=== PATIENT | male | born 1945 | race Caucasian/White ===

== ENCOUNTER 2018-05-26 11:25 | Emergency (ER) | payer MEDICARE, BC ==
[2018-05-26] MEDS ORDERED: HYDROCODONE/ACETAMINOPHEN 5-325 MG TABLET PO ONE (11:59)
[2018-05-26] MEDS ORDERED: KETOROLAC TROMETHAMINE 60 MG/2 ML SDV IM ONE (11:59)
[2018-05-26] MEDS ORDERED: COLCHICINE 0.6 MG TABLET PO ONE (11:59)
--- NOTE | 2018-05-26 12:06 | ER Document Report ---
ED Hand/Wrist Injury - General Chief Complaint: Hand Swelling Stated Complaint: RIGHT ARM SWELLING/PAIN Time Seen by Provider: 05/26/18 11:50 Notes: Chief complaint: Right wrist pain History of complain:( obtained from----patient) 73 years old male with a history of gout but not taking any medications, also has history of diabetes and high blood pressure presents today with sudden onset of swelling pain over the right wrist since yesterday. Progressively getting worse to the point that he was unable to flex and extend the wrist. The pain radiated up the arm. And to the hand. No injuries. Denies any fever chills or other constitutional symptoms. Onset: As above Duration: 2 days Severity: Moderate to severe Quality: Sharp Context: Gout Exacerbating factor and relieving factors: Any movements REVIEW OF SYSTEMS: CONSTITUTIONAL : Denies fever, chills, or sweats. Denies recent illness. EENT: Denies eye, ear, throat, or mouth pain or symptoms. Denies nasal or sinus congestion or discharge. Denies throat, tongue, or mouth swelling or difficulty swallowing. CARDIOVASCULAR: Denies chest pain. Denies palpitations or racing or irregular heart beat. Denies ankle edema. RESPIRATORY: Denies cough, cold, or chest congestion. Denies shortness of breath, difficulty breathing, or wheezing. GASTROINTESTINAL: Denies distention. Denies nausea, vomiting, or diarrhea. Denies blood in vomitus, stools, or per rectum. Denies black, tarry stools. Denies constipation. GENITOURINARY: Denies difficulty urinating, painful urination, burning, frequency, blood in urine, or discharge. FEMALE GENITOURINARY: Denies vaginal bleeding, heavy or abnormal periods, irregular periods. Denies vaginal discharge or odor. MUSCULOSKELETAL: Denies back or neck pain or stiffness. Denies joint pain or swelling. SKIN: Denies rash, lesions or sores. HEMATOLOGIC : Denies easy bruising or bleeding. LYMPHATIC: Denies swollen, enlarged glands. NEUROLOGICAL: Denies confusion or altered mental status. Denies passing out or loss of consciousness. Denies dizziness or lightheadedness. Denies headache. Denies weakness or paralysis or loss of use of either side. Denies problems with gait or speech. Denies sensory loss, numbness, or tingling. Denies seizures. PSYCHIATRIC: Denies anxiety or stress. Denies depression, suicidal ideation, or homicidal ideation. ALL OTHER SYSTEMS REVIEWED AND NEGATIVE. PHYSICAL EXAMINATION: GENERAL: Well-appearing, well-nourished and in no acute distress. HEAD: Atraumatic, normocephalic. EYES: Pupils equal round and reactive to light, extraocular movements intact, conjunctiva are normal. ENT: Nares patent, oropharynx clear without exudates. Moist mucous membranes. NECK: Normal range of motion, supple without lymphadenopathy LUNGS: Breath sounds clear to auscultation bilaterally and equal. No wheezes rales or rhonchi. HEART: Regular rate and rhythm without murmurs ABDOMEN: Soft, nontender, nondistended abdomen. No guarding, no rebound. No masses appreciated. Examination of genitals-deferred Musculoskeletal: Right forearm at the wrist which is very warm and tender as well as diffuse swelling noted. He could not flex or extend due to pain. Neurovascular function distally was within normal limit. NEUROLOGICAL: Cranial nerves grossly intact. Normal speech, normal gait. Normal sensory, motor exams PSYCH: Normal mood, normal affect. SKIN: Warm, Dry, normal turgor, no rashes or lesions noted. Dictation was performed using [employer] voice recognition software TRAVEL OUTSIDE OF THE [place] IN LAST 30 DAYS: No - HPI Notes: Dictated - Related Data Allergies/Adverse Reactions: No Known Allergies Allergy (Verified 05/26/18 11:29) Past Medical History - Social History Smoking Status: Never Smoker Chew tobacco use (# tins/day): No Frequency of alcohol use: None Drug Abuse: None Lives with: Family Family History: Reviewed & Not Pertinent Patient has suicidal ideation: No Patient has homicidal ideation: No - Past Medical History Cardiac Medical History: Reports: Hx Atrial Fibrillation, Hx Congestive Heart Failure Endocrine Medical History: Reports: Hx Diabetes Mellitus Type 2 Renal/ Medical History: Denies: Hx Peritoneal Dialysis Past Surgical History: Reports: Hx Cholecystectomy, Hx Orthopedic Surgery - r knee l elbowl hand Review of Systems - Review of Systems Notes: Dictated Physical Exam - Vital signs Vitals: Temp Pulse Resp BP Pulse Ox 98.4 F 80 24 H 169/71 H 96 05/26/18 11:35 05/26/18 11:35 05/26/18 11:35 05/26/18 11:35 05/26/18 11:35 - Notes Notes: Dictated Course - Re-evaluation Re-evalutation: 05/26/18 12:03 Given colchicine and Toradol - Vital Signs Vital signs: Temp Pulse Resp BP Pulse Ox 98.4 F 80 24 H 169/71 H 96 05/26/18 11:35 05/26/18 11:35 05/26/18 11:35 05/26/18 11:35 05/26/18 11:35 - Diagnostic Test Radiology reviewed: Reports reviewed - X-ray of the wrist reported by radiologist as osteoarthritic changes no fractures Discharge - Discharge Clinical Impression: Gout attack Qualifiers: Gout site: wrist Gout etiology: unspecified cause Laterality: right Qualified Code(s): M10.9 - Gout, unspecified Instructions: Gout (OM), Gout Diet ([facility]) Prescriptions: Colchicine [Colchicine 0.6 mg Tablet] 0.6 mg PO DAILY #7 tablet Hydrocodone/Acetaminophen [Hydrocodon-Acetaminophen 5-325] 1 each PO TID #14 tablet Indomethacin [Indocin 50 Mg Capsule] 50 mg PO BID #20 capsule Referrals: [facility] [Provider Group] - Follow up as needed
--- NOTE | 2018-05-26 12:55 | RADIOLOGY REPORT (SQ) ---
EXAM DESCRIPTION: WRIST RIGHT 3 VIEWS COMPLETED DATE/TIME: 05/26/2018 12:44 pm REASON FOR STUDY: Pain and swelling COMPARISON: None. NUMBER OF VIEWS: Three views. TECHNIQUE: AP, lateral, and oblique radiographic images acquired of the right wrist. LIMITATIONS: None. FINDINGS: MINERALIZATION: Normal. BONES: No acute fracture or dislocation. A few small cystic areas in several carpal bones. No worri some bone lesions. Normal alignment. Joint space narrowing with sclerosis and small osteophytes at th e base of the thumb. JOINTS: No erosions. No bebo-articular osteopenia. No chondrocalcinosis. SOFT TISSUES: No swelling. No calcifications. OTHER: No other significant finding. IMPRESSION: CHRONIC DEGENERATIVE CHANGES. NO SIGNIFICANT EROSIVE CHANGES. TECHNICAL DOCUMENTATION: JOB ID: [id number] [employer]- All Rights Reserved Reading location - IP/workstation name: [facility]
[2018-05-26 14:21] VITALS: BP 143/67
== END 2018-05-26 14:25 | disposition home or self-care (01) ==
LOC: ER 11:25
DX: M10.9 Gout, unspecified (principal); E11.9 Type 2 diabetes mellitus without complications; I10 Essential (primary) hypertension
CPT/HCPCS: 99283; 96372; 73110; A9270 ×2; J1885

== ENCOUNTER 2018-07-23 10:10 | Emergency (ER) | payer MEDICARE, BC ==
[2018-07-23 11:27] LABS: ABSOLUTE BASOPHILS # (AUTO) 0.1 10^3/uL (0.0-0.2); ABSOLUTE EOSINOPHILS # (AUTO) 0.4 10^3/uL (0.0-0.6); ABSOLUTE LYMPHOCYTES (AUTO) 1.7 10^3/uL (0.5-4.7); ABSOLUTE MONOCYTES (AUTO) 0.7 10^3/uL (0.1-1.4); ABSOLUTE NEUT (AUTO) 7.2 10^3/uL (1.7-8.2); BASOPHILS % (AUTO) 0.9 % (0-2); EOSINOPHILS % (AUTO) 3.9 % (0-6); HEMATOCRIT 32.2 % (37.9-51.0); HEMOGLOBIN 9.9 g/dL (13.5-17.0); LYMPHOCYTES % (AUTO) 17.2 % (13-45); MEAN CORPUSCULAR HEMOGLOBIN 23.7 pg (27.0-33.4); MEAN CORPUSCULAR HGB CONC 30.9 g/dL (32.0-36.0); MEAN CORPUSCULAR VOLUME 77 fl (80-97); MONOCYTES % (AUTO) 7.2 % (3-13); PLATELET COUNT 345 10^3/uL (150-450); RED CELL DISTRIBUTION WIDTH 18.1 % (11.5-14.0); SEGMENTED NEUTROPHILS % (AUTO) 70.8 % (42-78); TOTAL CELLS COUNTED % (AUTO) 100 %; WHITE BLOOD COUNT 10.2 10^3/uL (4.0-10.5)
--- NOTE | 2018-07-23 11:31 | ER Document Report ---
ED Fall - General Chief Complaint: Fall Stated Complaint: FALL Time Seen by Provider: 07/23/18 11:16 Information source: Patient Notes: Patient is a 73-year-old male who presents today with his after the patient fell in the shower. Patient states he was standing in the shower and his legs became "shaky for a second". He states he fell but did not hit his head. Patient is on Eliquis secondary to atrial fibrillation. Patient denies any headache, neck pain, chest pain, abdominal pain, pelvic pain, or weakness or numbness of his arms or legs. Patient has no recent infections such as vomiting, diarrhea, runny nose, or congestion. TRAVEL OUTSIDE OF THE [place] IN LAST 30 DAYS: No - HPI Occurred: Other - See above Where: Home Context: Lost balance, Fell from standing Associated symptoms: None Location of injury/pain: Other - See above Quality of pain: Other - See above Severity: None Pain Level: Denies Prehospital interventions: Other - Related data Allergies/Adverse Reactions: No Known Allergies Allergy (Verified 05/26/18 11:29) Past Medical History - Social History Smoking Status: Unknown if Ever Smoked Family History: Reviewed & Not Pertinent - Past Medical History Cardiac Medical History: Reports: Hx Atrial Fibrillation, Hx Congestive Heart Failure Endocrine Medical History: Reports: Hx Diabetes Mellitus Type 2 Renal/ Medical History: Denies: Hx Peritoneal Dialysis Past Surgical History: Reports: Hx Cholecystectomy, Hx Orthopedic Surgery - r knee l elbowl hand Review of Systems - Review of Systems Constitutional: denies: Fever EENT: denies: Eye discharge, Nose discharge Cardiovascular: denies: Chest pain, Palpitations, Syncope Respiratory: denies: Short of breath Gastrointestinal: denies: Vomiting Genitourinary: denies: Dysuria Musculoskeletal: denies: Leg swelling Skin: Other - no hives. denies: Rash Neurological/Psychological: Other - no slurred speech -: Yes All other systems reviewed and negative Physical Exam - Vital signs Vitals: Temp Pulse Resp BP Pulse Ox 97.8 F 73 20 142/67 H 99 07/23/18 10:17 07/23/18 10:17 07/23/18 10:17 07/23/18 10:17 07/23/18 10:17 Notes: Reviewed vital signs and nursing note as charted by RN. CONSTITUTIONAL: Alert and oriented and responds appropriately to questions. Well-appearing; well-nourished HEAD: Normocephalic; atraumatic EYES: PERRL; Conjunctivae clear, sclerae non-icteric ENT: Normal nose; no rhinorrhea; moist mucous membranes; pharynx without lesions noted NECK: Supple without meningismus; non-tender; no carotid bruit; no cervical lymphadenopathy, no masses CARD: Regular rate and rhythm; no murmurs; symmetric distal pulses RESP: Normal chest excursion without splinting or tachypnea; breath sounds clear and equal bilaterally; no wheezes, no rhonchi, no rales ABD/GI: Normal bowel sounds; non-distended; soft, non-tender; no palpable organomegaly or masses BACK: The back appears normal and is non-tender to palpation EXT: Normal ROM in all joints; non-tender to palpation; no edema SKIN: No acute lesions noted NEURO: CN 2-12 intact; 5/5 bilateral upper and lower extremity strength with sensation intact to light touch PSYCH: The patient's mood and manner are appropriate. Grooming and personal hygiene are appropriate. Course - Re-evaluation Re-evalutation: 07/23/18 11:29 Given the above history and physical examination, I will obtain an EKG, place the patient on the monitor, obtain basic labs, and obtain orthostatic vital signs. I do not believe that the patient requires any imaging at this moment. Patient has no tenderness to the extremities, back, neck, and states that he did not hit his head. Patient does state that he has some baseline dark stools. Patient is on Eliquis. 07/23/18 12:05 EKG shows a heart rate of 72, normal sinus rhythm, left anterior fascicular block, no ST elevation or depression. Incomplete right bundle branch block. Minimally prolonged QT interval. 07/23/18 12:44 Labs as recorded. No old hemoglobin to compare. MCV is 77. I did perform a rectal examination and do not detect any gross blood but the patient does have a Hemoccult positive stool. Patient is recently moved here from [place]. We attempted to call the patient's primary care physician to obtain a recent hemoglobin. 07/23/18 14:09 We did receive the fax laboratory values from the primary provider in [place]. The patient's last 2 hemoglobins were 9.9 and 9.9 respectively. Patient has no current symptomatology at this time. Orthostatics were unremarkable. Still no chest or abdominal pain. Given the above history and physical examination, I had a long talk with the patient and the about my willingness to transport the patient to another facility for colonoscopy and assessment given that the patient does have Hemoccult positive stool. I did explain however that the patient's hemoglobin appears to be stable with stable vital signs. After a long discussion, the family has decided they would like to go home and follow-up with strict return precautions with the outpatient digital account manager. I believe that this is a reasonable option. Patient will be discharged home with strict return precautions and follow-up with a digital account manager. Patient and are very comfortable with this plan. - Vital Signs Vital signs: Temp Pulse Resp BP Pulse Ox 97.8 F 67 15 120/63 99 07/23/18 10:17 07/23/18 12:50 07/23/18 13:03 07/23/18 13:03 07/23/18 13:03 - Laboratory Result Diagrams: 07/23/18 10:26 07/23/18 10:26 Laboratory results interpreted by me: 07/23/18 07/23/18 10:26 10:26 RBC 4.20 L Hgb 9.9 L Hct 32.2 L MCV 77 L MCH 23.7 L MCHC 30.9 L RDW 18.1 H BUN 21 H Est GFR (Non-Af Amer) 59 L Glucose 112 H Discharge - Discharge Clinical Impression: Rectal bleeding Accidental fall Qualifiers: Encounter type: initial encounter Qualified Code(s): W19.XXXA - Unspecified fall, initial encounter Condition: Good Disposition: HOME, SELF-CARE Additional Instructions: Come back immediately with any repeat episodes, any chest pain, lightheadedness, dizziness, fevers, vomiting, diarrhea, blood in the stool, or any other acute problems. Please follow-up with primary care physician and GI physician as we have provided. Referrals: ERIKA ORELLANA MD [ACTIVE STAFF] - Follow up as needed
[2018-07-23 11:37] LABS: ANION GAP 9 (5-19); BLOOD UREA NITROGEN 21 mg/dL (7-20); CALCIUM 9.1 mg/dL (8.4-10.2); CARBON DIOXIDE 30 mmol/L (22-30); CHLORIDE 101 mmol/L (98-107); GLUCOSE 112 mg/dL (75-110); POTASSIUM 4.7 mmol/L (3.6-5.0); SODIUM 139.6 mmol/L (137-145)
[2018-07-23 14:26] VITALS: BP 121/96
--- NOTE | 2018-07-23 14:57 | EKG REPORT ---
SEVERITY:- ABNORMAL ECG - SINUS RHYTHM INCOMPLETE RBBB AND LAFB BORDERLINE PROLONGED QT INTERVAL : Confirmed by: Ba Victoria 23-Jul-2018 14:56:29
== END 2018-07-23 14:32 | disposition home or self-care (01) ==
LOC: ER 10:10
DX: K62.5 Hemorrhage of anus and rectum (principal); W18.2XXA Fall in (into) shower or empty bathtub, initial encounter; Y92.002 Bathroom of unspecified non-institutional (private) residence as the place of occurrence of the external cause; I48.91 Unspecified atrial fibrillation; I50.9 Heart failure, unspecified; E11.9 Type 2 diabetes mellitus without complications; Z79.01 Long term (current) use of anticoagulants; Z90.49 Acquired absence of other specified parts of digestive tract
CPT/HCPCS: 36415; 80048; 82962; 84484; 85025; 93005; 93010; 99284

== ENCOUNTER 2018-07-26 19:48 | Emergency (ER) | payer MEDICARE, BC ==
--- NOTE | 2018-07-26 20:21 | ER Document Report ---
ED Medical Screen (RME) - General Chief Complaint: Inability to Void Stated Complaint: URINATION PAIN ISSUES Time Seen by Provider: 07/26/18 20:18 TRAVEL OUTSIDE OF THE [place] IN LAST 30 DAYS: No - HPI Notes: 07/26/18 20:19 Patient is a 73-year-old male that presents to the emergency department for chief complaint of constipation, urinary retention and black stools. Patient takes Eliquis for atrial fibrillation. He states he was recently seen in the emergency room for GI bleed and referred to GI for follow-up, he has tried to get in touch with Dr. Mendez but has not been able to. Patient now states he has not had a normal bowel movement in the past few days. He states he is had a hard time urinating beginning today. He was able to void but he had to strain and he still feels some retention. ROS: GENERAL: Denies fever of chills CV: Denies chest pain PHYSICAL EXAMINATION: GENERAL: Well-appearing, well-nourished and in no acute distress. HEAD: Atraumatic, normocephalic. EYES: Pupils equal round extraocular movements intact, conjunctiva are normal. ENT: Nares patent NECK: Normal range of motion LUNGS: No respiratory distress Musculoskeletal: Normal range of motion NEUROLOGICAL: Normal speech, normal gait. PSYCH: Normal mood, normal affect. MDM: Patient seen and examined for rapid initial assessment. Vital signs reviewed. A comprehensive ED assessment and evaluation of the patient, analysis of test results and completion of the medical decision making process will be conducted by additional ED providers. - Related Data Allergies/Adverse Reactions: No Known Allergies Allergy (Verified 05/26/18 11:29) Past Medical History - Past Medical History Cardiac Medical History: Reports: Hx Atrial Fibrillation, Hx Congestive Heart Failure Endocrine Medical History: Reports: Hx Diabetes Mellitus Type 2 Renal/ Medical History: Denies: Hx Peritoneal Dialysis Past Surgical History: Reports: Hx Cholecystectomy, Hx Orthopedic Surgery - r knee l elbowl hand Physical Exam - Vital signs Vitals: Temp Pulse Resp BP Pulse Ox 98.4 F 78 19 137/74 H 96 07/26/18 19:57 07/26/18 19:57 07/26/18 19:57 07/26/18 19:57 07/26/18 19:57 Course - Vital Signs Vital signs: Temp Pulse Resp BP Pulse Ox 98.4 F 78 19 137/74 H 96 07/26/18 19:57 07/26/18 19:57 07/26/18 19:57 07/26/18 19:57 07/26/18 19:57
[2018-07-26 20:57] LABS: ABSOLUTE BASOPHILS # (AUTO) 0.2 10^3/uL (0.0-0.2); ABSOLUTE EOSINOPHILS # (AUTO) 0.3 10^3/uL (0.0-0.6); ABSOLUTE LYMPHOCYTES (AUTO) 1.7 10^3/uL (0.5-4.7); ABSOLUTE MONOCYTES (AUTO) 1.1 10^3/uL (0.1-1.4); ABSOLUTE NEUT (AUTO) 10.8 10^3/uL (1.7-8.2); BASOPHILS % (AUTO) 1.2 % (0-2); HEMATOCRIT 31.4 % (37.9-51.0); HEMOGLOBIN 9.9 g/dL (13.5-17.0); LYMPHOCYTES % (AUTO) 11.8 % (13-45); MEAN CORPUSCULAR HEMOGLOBIN 23.8 pg (27.0-33.4); MEAN CORPUSCULAR HGB CONC 31.4 g/dL (32.0-36.0); MEAN CORPUSCULAR VOLUME 76 fl (80-97); MONOCYTES % (AUTO) 8.2 % (3-13); PLATELET COUNT 314 10^3/uL (150-450); RED BLOOD COUNT 4.13 10^6/uL (4.35-5.55); RED CELL DISTRIBUTION WIDTH 18.4 % (11.5-14.0); SEGMENTED NEUTROPHILS % (AUTO) 76.8 % (42-78); TOTAL CELLS COUNTED % (AUTO) 100 %
[2018-07-26 20:58] LABS: APPEARANCE,URINE CLEAR; BILIRUBIN,URINE NEGATIVE (NEGATIVE); COLOR,URINE YELLOW; GLUCOSE, URINE NEGATIVE (NEGATIVE); KETONES,URINE NEGATIVE (NEGATIVE); LEUKOCYTE ESTERASE,URINE NEGATIVE (NEGATIVE); NITRITE,URINE NEGATIVE (NEGATIVE); PROTEIN,URINE NEGATIVE (NEGATIVE); UROBILINOGEN,URINE NEGATIVE mg/dL (<2.0)
[2018-07-26 21:15] LABS: ALANINE AMINOTRANSFERASE 20 U/L (21-72); ALBUMIN 3.9 g/dL (3.5-5.0); ALKALINE PHOSPHATASE 100 U/L (38-126); ANION GAP 10 (5-19); ASPARTATE AMINO TRANSFERASE 21 U/L (17-59); BILIRUBIN,DIRECT 0.2 mg/dL (0.0-0.4); BILIRUBIN,TOTAL 0.5 mg/dL (0.2-1.3); BLOOD UREA NITROGEN 22 mg/dL (7-20); CALCIUM 8.6 mg/dL (8.4-10.2); CARBON DIOXIDE 27 mmol/L (22-30); CHLORIDE 100 mmol/L (98-107); GLUCOSE 146 mg/dL (75-110); POTASSIUM 5.4 mmol/L (3.6-5.0); PROTHROMBIN TIME 16.8 SEC (11.4-15.4); SODIUM 137.2 mmol/L (137-145)
--- NOTE | 2018-07-26 21:55 | ER Document Report ---
ED General - General Chief Complaint: Inability to Void Stated Complaint: URINATION PAIN ISSUES Time Seen by Provider: 07/26/18 20:18 Notes: Patient is a 73-year-old male with a past medical history of atrial fibrillation, congestive heart failure, hypertension, presents with 2 concerns. His first concern is that he has been having urinary retention or incomplete bladder emptying over the last 24 hours. He states that he feels like he is unable to completely empty his bladder and has an associated suprapubic, throbbing, aching, constant discomfort. Nothing improves or worsens the symptoms. Denies any history of urinary retention in the past. The patient also reports that he is having anal leakage. Patient states that he has an urge to have a bowel movement but has a ready had some leakage of liquid stool into his underwear, when he attempts to have a bowel movement when on the commode he is unable to pass any stool. States that his last bowel movement was 5 or 6 days ago. He has not tried anything to improve his above symptoms. He denies any worsening factors. He has not seen his primary doctor regarding today's concerns. He denies fever or constitutional symptoms. No vomiting. TRAVEL OUTSIDE OF THE [place] IN LAST 30 DAYS: No - Related Data Allergies/Adverse Reactions: No Known Allergies Allergy (Verified 05/26/18 11:29) Past Medical History - General Information source: Patient - Social History Smoking Status: Former Smoker Frequency of alcohol use: None Drug Abuse: None Lives with: Spouse/Significant other Family History: Reviewed & Not Pertinent Patient has suicidal ideation: No Patient has homicidal ideation: No - Past Medical History Cardiac Medical History: Reports: Hx Atrial Fibrillation, Hx Congestive Heart Failure Endocrine Medical History: Reports: Hx Diabetes Mellitus Type 2 Renal/ Medical History: Denies: Hx Peritoneal Dialysis Past Surgical History: Reports: Hx Cholecystectomy, Hx Orthopedic Surgery - r knee l elbowl hand Review of Systems - Review of Systems Notes: Constitutional: Negative for fever. HENT: Negative for sore throat. Eyes: Negative for visual changes. Cardiovascular: Negative for chest pain. Respiratory: Negative for shortness of breath. Gastrointestinal: Positive for stool incontinence, suprapubic abdominal pain Genitourinary: Positive for urinary retention Musculoskeletal: Negative for back pain. Skin: Negative for rash. Neurological: Negative for headaches, weakness or numbness. 10 point ROS negative except as marked above and in HPI. Physical Exam - Vital signs Vitals: Temp Pulse Resp BP Pulse Ox 98.4 F 78 19 137/74 H 96 07/26/18 19:57 07/26/18 19:57 07/26/18 19:57 07/26/18 19:57 07/26/18 19:57 Interpretation: Normal Notes: PHYSICAL EXAMINATION: GENERAL: Well-appearing, well-nourished and in no acute distress. HEAD: Atraumatic, normocephalic. EYES: Pupils equal round and reactive to light, extraocular movements intact, sclera anicteric, conjunctiva are normal. ENT: nares patent, oropharynx clear without exudates. Mild dry mucous membranes. NECK: Normal range of motion, supple without lymphadenopathy LUNGS: Breath sounds clear to auscultation bilaterally and equal. No wheezes rales or rhonchi. HEART: Irregularly irregular rate and rhythm without murmurs ABDOMEN: Soft, morbidly obese abdomen, mild suprapubic tenderness but no other areas of localized abdominal tenderness, normoactive bowel sounds. No guarding, no rebound. No masses appreciated. EXTREMITIES: Normal range of motion, no pitting or edema. No cyanosis. NEUROLOGICAL: No focal neurological deficits. Moves all extremities spontaneously and on command. PSYCH: Normal mood, normal affect. SKIN: Warm, Dry, normal turgor, no rashes or lesions noted. Course - Re-evaluation Re-evalutation: 07/26/18 21:53 Patient presents with complaints of anal leakage as well as urinary retention. The patient reports that he is having an urge to use the restroom, has leakage of liquid stool into his underwear, gets to the bathroom is unable to void. Last bowel movements over 5 days ago and I do suspect the patient may have significant constipation and is having leakage of liquid stool around to large colonic stool burden. Will obtain a 2 view of the abdomen to further verify. The patient is also complaining of a feeling of suprapubic abdominal discomfort. Denies generalized abdominal discomfort. On abdominal exam he does have pain isolated to the suprapubic area. Bedside ultrasound does show a distended bladder even though the patient just urinated 30 minutes prior to my assessment and has not drank anything since that time suggestive that the patient is having urinary retention. Labs today unchanged from a recent visit, hemoglobin unchanged at 9.9 going against any significant GI bleed and patient denies any bright red blood or melanotic stools. Will perform straight catheterization to see if this relieves the patient's suprapubic discomfort and reassess. 07/26/18 23:01 Patient has had complete resolution of his lower abdominal discomfort after having 500 cc of urine removed via straight catheterization. Repeat abdominal exam is without any tenderness of any kind. Abdominal 2 view does show rectal and colonic stool burden, no evidence of obstruction. The patient did undergo an enema and had significant relief of the large stool burden here in the emergency department. He will be started on a MiraLAX preparation at home to try to clear this constipation which may be the cause of his anal leakage. No indication for CT scan the abdomen pelvis at this point given the absence of any ongoing abdominal pain related to tolerate p.o. He has asked been asking to eat the entire time he is been here in the emergency department. At this time will discharge with return precautions and follow-up recommendations. Verbal discharge instructions given a the bedside and opportunity for questions given. Medication warnings reviewed. Patient is in agreement with this plan and has verbalized understanding of return precautions and the need for primary care follow-up in the next 24-72 hours. - Vital Signs Vital signs: Temp Pulse Resp BP Pulse Ox 98.4 F 75 18 140/66 H 95 07/27/18 00:45 07/27/18 00:45 07/27/18 00:45 07/27/18 00:45 07/27/18 00:45 - Laboratory Result Diagrams: 07/26/18 20:42 07/26/18 20:42 Laboratory results interpreted by me: 07/26/18 07/26/18 07/26/18 20:42 20:42 20:42 WBC 14.0 H RBC 4.13 L Hgb 9.9 L Hct 31.4 L MCV 76 L MCH 23.8 L MCHC 31.4 L RDW 18.4 H Lymphocytes % 11.8 L Absolute Neutrophils 10.8 H PT 16.8 H Potassium 5.4 H BUN 22 H Creatinine 1.28 H Est GFR (Non-Af Amer) 55 L Glucose 146 H ALT 20 L - Diagnostic Test Radiology reviewed: Image reviewed, Reports reviewed Radiology results interpreted by me: 07/26/18 23:02 2 view abdomen: No evidence of obstruction or perforation Discharge - Discharge Clinical Impression: Anal leakage, Urinary retention, Lower abdominal pain Constipation Qualifiers: Constipation type: unspecified constipation type Qualified Code(s): K59.00 - Constipation, unspecified Condition: Good Disposition: HOME, SELF-CARE Additional Instructions: Please begin taking 2 capfuls of MiraLAX daily to try to relieve your constipation. You have been started on tamsulosin to try to help reduce your urinary retention although as I have discussed with you today I am concerned that you may continue to have this and may need a catheter to be placed until you can follow-up with urology. The remainder of your labs are unchanged from your previous visit. Please follow-up closely with your primary care physician within the next 24-48 hours. Please return to the emergency room immediately if you develop persistent vomiting, fever greater than 100.4 F, increased or new abdominal pain, or any other symptoms that are worrisome to you. Prescriptions: Tamsulosin HCl [Flomax 0.4 mg Cap.sr] 0.4 mg PO DAILY #14 cap.sr.24h
--- NOTE | 2018-07-26 22:42 | RADIOLOGY REPORT (SQ) ---
XR ABDOMEN 2 VIEWS SUPINE ERECT HISTORY: Abdominal pain. COMPARISON: None. FINDINGS: A nonobstructive bowel gas pattern is seen. No abnormal soft tissue calcifications are seen. There are no air-fluid levels or pneumoperitoneum on the upright view. The lung bases are clear. A [employer] shunt terminates in the pelvis. IMPRESSION: No evidence of bowel obstruction. However, consider CT scan if there is high concern.
[2018-07-26] MEDS ORDERED: MINERAL OIL 30 ML UDCUP PR ONE (22:59)
[2018-07-26] MEDS ORDERED: LACTULOSE SYRUP 20 GM/30 ML UDCUP PO ONE (23:00)
[2018-07-27 00:54] VITALS: BP 140/66
== END 2018-07-27 00:50 | disposition home or self-care (01) ==
LOC: ER 19:48
DX: K59.00 Constipation, unspecified (principal); R33.9 Retention of urine, unspecified; R10.30 Lower abdominal pain, unspecified; R15.9 Full incontinence of feces; E11.9 Type 2 diabetes mellitus without complications; I10 Essential (primary) hypertension; Z87.891 Personal history of nicotine dependence
CPT/HCPCS: 99284; 51701; 86900; 86901; 36415; 86850; 85025; 85610; 80053; 81001; 74019; A9270; J3490; C1758

== ENCOUNTER → 2018-08-20 | Outpatient (CLI) | payer MEDICARE, BC ==
[2018-08-20 14:31] LABS: MEAN CORPUSCULAR HEMOGLOBIN 23.2 pg (27.0-33.4); MEAN CORPUSCULAR HGB CONC 31.3 g/dL (32.0-36.0); MEAN CORPUSCULAR VOLUME 74 fl (80-97); PLATELET COUNT 315 10^3/uL (150-450); RED BLOOD COUNT 4.31 10^6/uL (4.35-5.55); RED CELL DISTRIBUTION WIDTH 18.2 % (11.5-14.0); WHITE BLOOD COUNT 9.3 10^3/uL (4.0-10.5)
[2018-08-20 14:40] LABS: IRON(TIBC) 19.7 ug/dL (49-181)
[2018-08-20 15:18] LABS: FERRITIN 6.16 ng/mL (17.9-464.0)
== END ==
LOC: OD 13:39
PROVIDERS: ATTEND Physician Assistant Surgical
DX: D64.9 Anemia, unspecified (principal)
CPT/HCPCS: 36415; 82607; 82728; 82746; 83540; 83550; 85027

== ENCOUNTER 2018-10-19 15:05 | Day surgery (SDC) | payer MEDICARE, BC ==
[2018-10-19] MEDS ORDERED: FENTANYL CITRATE INJ/PF 100 MCG/2 ML AMPUL ONE (16:17)
[2018-10-19] MEDS ORDERED: DIPHENHYDRAMINE HCL 50 MG/ML VIAL ONE (16:17)
[2018-10-19] MEDS ORDERED: ONDANSETRON HCL INJ/PF 4 MG/2 ML SDV ONE (16:17)
[2018-10-19] MEDS ORDERED: FLUMAZENIL INJ 0.5 MG/5 ML VIAL ONE (16:18)
[2018-10-19] MEDS ORDERED: EPINEPHRINE INJ 1 MG/10 ML DISP.SYRIN ONE (16:18)
[2018-10-19] MEDS ORDERED: MIDAZOLAM 2 MG/2 ML INJ ONE (16:18)
[2018-10-19] MEDS ORDERED: NALOXONE HCL INJ/PF 0.4 MG/1 ML SDV ONE (16:18)
[2018-10-19] MEDS ORDERED: GLUCAGON,HUMAN RECOMB 1 MG INJ ONE (16:18)
--- NOTE | 2018-10-19 17:06 | Operative Report ---
Operative Report DATE OF SURGERY: 10/19/18 Operative Report: Pre-op diagnosis: History of iron deficiency anemia, angiodysplasia noted in the right colon on capsule endoscopy Post-op diagnosis: 1. Angiodysplasia in the cecum and ascending colon 2. Transverse colon polyp Surgery: Colonoscopy argon plasma coagulation and polypectomy Medications: Versed 2mg, Fentanyl 100mcg IV push Tissue removed: Colon polyp Procedure: After informed consent obtained from patient, conscious sedation was achieved. A digital rectal examination was performed and this was unremarkable. The colonoscope was inserted into the rectum and advanced to the cecum. The appendiceal orifice and the terminal ileum were both identified. The mucosa was examined into details as the colonoscope was slowly pulled out of the patient. The endoscope was retroflexed in the rectum. Patient tolerated the procedure well. Findings Terminal ileum: Normal Cecum: 2 tiny angiodysplasia as well ablated Ascending colon: A 5 mm and 2 mm angiodysplasia ablated from the proximal and distal ascending colon Transverse colon: 4 mm polyp removed with a hot snare Descending colon: Normal Sigmoid colon: Normal Rectum: Normal except for large internal hemorrhoids Plan: Await pathology and follow-up CBC. Resume Madeline on 10/23/2018 OPERATION: .
[2018-10-19 17:42] VITALS: BP 169/72
== END 2018-10-19 17:50 | disposition home or self-care (01) ==
LOC: END 15:05
PROVIDERS: ATTEND Internal Medicine Gastroenterology
DX: D12.3 Benign neoplasm of transverse colon (principal); K55.20 Angiodysplasia of colon without hemorrhage; K64.8 Other hemorrhoids; D50.0 Iron deficiency anemia secondary to blood loss (chronic); Z86.010 Personal history of colon polyps; E78.00 Pure hypercholesterolemia, unspecified; E11.9 Type 2 diabetes mellitus without complications; E03.9 Hypothyroidism, unspecified; I11.0 Hypertensive heart disease with heart failure; I50.9 Heart failure, unspecified; I48.91 Unspecified atrial fibrillation; Z79.4 Long term (current) use of insulin; Z79.899 Other long term (current) drug therapy; Z79.84 Long term (current) use of oral hypoglycemic drugs; Z79.01 Long term (current) use of anticoagulants; Z86.73 Personal history of transient ischemic attack (TIA), and cerebral infarction without residual deficits
CPT/HCPCS: 45385; 45388; 82962; 88305 ×2; J2250; J3010; J0171; J1200; J1610; J2310; J2405; J3490

== ENCOUNTER 2019-08-24 17:57 | Emergency (ER) | payer MEDICARE, BC ==
[2019-08-24 19:46] LABS: ABSOLUTE BASOPHILS # (AUTO) 0.1 10^3/uL (0.0-0.2); ABSOLUTE LYMPHOCYTES (AUTO) 0.9 10^3/uL (0.5-4.7); ABSOLUTE MONOCYTES (AUTO) 0.9 10^3/uL (0.1-1.4); BASOPHILS % (AUTO) 0.6 % (0-2); EOSINOPHILS % (AUTO) 0.5 % (0-6); HEMATOCRIT 36.4 % (37.9-51.0); HEMOGLOBIN 12.3 g/dL (13.5-17.0); LYMPHOCYTES % (AUTO) 9.7 % (13-45); MEAN CORPUSCULAR HEMOGLOBIN 29.5 pg (27.0-33.4); MEAN CORPUSCULAR HGB CONC 33.8 g/dL (32.0-36.0); MEAN CORPUSCULAR VOLUME 87 fl (80-97); MONOCYTES % (AUTO) 10.6 % (3-13); PLATELET COUNT 222 10^3/uL (150-450); RED BLOOD COUNT 4.18 10^6/uL (4.35-5.55); RED CELL DISTRIBUTION WIDTH 15.3 % (11.5-14.0); SEGMENTED NEUTROPHILS % (AUTO) 78.6 % (42-78); TOTAL CELLS COUNTED % (AUTO) 100 %; WHITE BLOOD COUNT 8.9 10^3/uL (4.0-10.5)
[2019-08-24 20:06] LABS: ALBUMIN 3.6 g/dL (3.5-5.0); ALKALINE PHOSPHATASE 75 U/L (38-126); ANION GAP 11 (5-19); ASPARTATE AMINO TRANSFERASE 32 U/L (17-59); BLOOD UREA NITROGEN 14 mg/dL (7-20); CALCIUM 8.5 mg/dL (8.4-10.2); CARBON DIOXIDE 26 mmol/L (22-30); CHLORIDE 97 mmol/L (98-107); GLUCOSE 121 mg/dL (75-110); POTASSIUM 4.5 mmol/L (3.6-5.0); TOTAL PROTEIN 6.6 g/dL (6.3-8.2)
[2019-08-24] MEDS ORDERED: CEFTRIAXONE 1 GM/D5W RTU 1 GM/50 ML RTUPB IV ONE ×2 (20:13→23:00)
[2019-08-24] MEDS ORDERED: RINGERS SOLUTION,LACTATED 1,000 ML IV PRN (20:21)
--- NOTE | 2019-08-24 20:24 | ER Document Report ---
ED Fever - General Chief Complaint: Fever Stated Complaint: WEAKNESS/NAUSEA/VOMITING Time Seen by Provider: 08/24/19 19:58 Primary Care Provider: DIYA FINLEY PA-C [Primary Care Provider] - Follow up as needed TRAVEL OUTSIDE OF THE [place] IN LAST 30 DAYS: No - HPI Patient complains to provider of: fever/ weaknesss Onset: This morning Onset/Duration: Sudden Quality of pain: Achy Severity: Moderate Pain Level: 3 Associated symptoms: Chills Notes: 74 year old with dm, htn, a fib, cvd, and urinary retention is here with fever. Pt of Dr. Yajaira Bowden at [facility] in [place]. He is currently being treated for a left sided ear infection. Fever tonight to 103. No rash. Denies tick bite. No known sick contacts. Some runny nose and a bit of a nonproductive cough. - Related Data Allergies/Adverse Reactions: No Known Allergies Allergy (Verified 08/24/19 18:18) Past Medical History - Social History Smoking Status: Never Smoker Family History: Reviewed & Not Pertinent Patient has suicidal ideation: No Patient has homicidal ideation: No - Past Medical History Cardiac Medical History: Reports: Hx Atrial Fibrillation, Hx Congestive Heart Failure, Hx Hypercholesterolemia, Hx Hypertension Denies: Hx Coronary Artery Disease, Hx Heart Attack Pulmonary Medical History: Reports: Hx Asthma - H/O YRS AGO Denies: Hx Bronchitis, Hx COPD, Hx Pneumonia Neurological Medical History: Denies: Hx Cerebrovascular Accident, Hx Seizures Endocrine Medical History: Reports: Hx Diabetes Mellitus Type 2 Renal/ Medical History: Denies: Hx Peritoneal Dialysis GI Medical History: Reports: Hx Gastroesophageal Reflux Disease Musculoskeletal Medical History: Reports Hx Arthritis - R KNEE REPLACED Past Surgical History: Reports: Hx Cholecystectomy, Hx Orthopedic Surgery - r knee l elbowl hand - Immunizations Hx Diphtheria, Pertussis, Tetanus Vaccination: No - UNKNOWN Review of Systems - Review of Systems Constitutional: See HPI, Chills, Fever EENT: No symptoms reported Cardiovascular: No symptoms reported Respiratory: No symptoms reported Gastrointestinal: No symptoms reported Genitourinary: No symptoms reported Male Genitourinary: No symptoms reported Musculoskeletal: No symptoms reported Skin: No symptoms reported Hematologic/Lymphatic: No symptoms reported Neurological/Psychological: No symptoms reported Physical Exam - Vital signs Vitals: Temp Pulse Resp BP Pulse Ox 103 F H 84 24 H 159/85 H 98 08/24/19 18:19 08/24/19 18:19 08/24/19 18:19 08/24/19 18:19 08/24/19 18:19 Interpretation: Normal - General General appearance: Appears well, Alert - HEENT Head: Normocephalic, Atraumatic Eyes: Normal Pupils: PERRL - Respiratory Respiratory status: No respiratory distress Chest status: Nontender Breath sounds: Normal Chest palpation: Normal - Cardiovascular Rhythm: Regular Heart sounds: Normal auscultation Murmur: No - Abdominal Inspection: Normal Distension: No distension Bowel sounds: Normal Tenderness: Nontender Organomegaly: No organomegaly - Back Back: Normal, Nontender - Extremities General upper extremity: Normal inspection, Nontender, Normal color, Normal ROM, Normal temperature General lower extremity: Normal inspection, Nontender, Normal color, Normal ROM, Normal temperature, Normal weight bearing. No: Jose's sign - Neurological Neuro grossly intact: Yes Cognition: Normal Orientation: AAOx4 [place] Coma Scale Eye Opening: Spontaneous Gloria Coma Scale Verbal: Oriented Gloria Coma Scale Motor: Obeys Commands Gloria Coma Scale Total: 15 Speech: Normal Motor strength normal: LUE, RUE, LLE, RLE Sensory: Normal - Psychological Associated symptoms: Normal affect, Normal mood - Skin Skin Temperature: Warm Skin Moisture: Diaphoretic Skin Color: Normal Course - Re-evaluation Re-evalutation: 08/25/19 00:32 MDM 74 year old with acute febrile illness. DM and htn, hld are comorbidiites. Discussed follow up with and she expressed understanding. - Vital Signs Vital signs: Temp Pulse Resp BP Pulse Ox 98.5 F 84 21 H 128/42 H 100 08/24/19 19:31 08/24/19 18:19 08/24/19 23:31 08/24/19 23:31 08/24/19 23:31 - Laboratory Result Diagrams: 08/24/19 19:00 08/24/19 19:00 Laboratory results interpreted by me: 08/24/19 08/24/19 08/24/19 19:00 19:00 21:55 RBC 4.18 L Hgb 12.3 L Hct 36.4 L RDW 15.3 H Lymph % (Auto) 9.7 L Seg Neutrophils % 78.6 H Sodium 133.6 L Chloride 97 L Est GFR (MDRD) Non-Af 58 L Glucose 121 H Urine Protein 30 H Urine Blood SMALL H Urine Urobilinogen 2.0 H - Diagnostic Test Radiology reviewed: Reports reviewed Discharge - Discharge Clinical Impression: Acute febrile illness Diabetes Qualifiers: Diabetes mellitus type: other specified (including CM) 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 See your doctor in follow up today. Call the office this morning. Return here for any problems or any concerns including but not limited to change in level or consciousness, fever that does not improve with tylenol and motrin persistent vomiting or other concerns. Referrals: DIYA FINLEY PA-C [Primary Care Provider] - Follow up as needed
--- NOTE | 2019-08-24 20:51 | RADIOLOGY REPORT (SQ) ---
EXAM DESCRIPTION: XR CHEST 1 VIEW COMPLETED DATE/TME: 08/24/2019 20:12 CLINICAL HISTORY: 74 years, Male, fever COMPARISON: None. NUMBER OF VIEWS: One TECHNIQUE: Single frontal view of the chest was obtained portably LIMITATIONS: None. FINDINGS: Cardiac and mediastinal contours are normal. Lung volumes are low. No focal consolidation, pleural effusion, or pneumothorax is evident. A ventriculoperitoneal shunt catheter tract projects over the right hemithorax. IMPRESSION: Negative low lung volume study. copyright 2010 [employer]- All Rights Reserved
[2019-08-24 22:17] LABS: APPEARANCE,URINE CLEAR; BILIRUBIN,URINE NEGATIVE (NEGATIVE); COLOR,URINE YELLOW; GLUCOSE, URINE NEGATIVE (NEGATIVE); KETONES,URINE NEGATIVE (NEGATIVE); LEUKOCYTE ESTERASE,URINE NEGATIVE (NEGATIVE); NITRITE,URINE NEGATIVE (NEGATIVE); PROTEIN,URINE 30 mg/dL (NEGATIVE); URINE SPECIFIC GRAVITY 1.008
[2019-08-24 23:19] LABS: A TYPE INFLUENZA AG NEGATIVE (NEGATIVE); B INFLUENZA AG NEGATIVE (NEGATIVE)
[2019-08-25 00:57] VITALS: BP 122/50
== END 2019-08-25 01:12 | disposition home or self-care (01) ==
LOC: ER 17:57
DX: H66.92 Otitis media, unspecified, left ear (principal); E11.8 Type 2 diabetes mellitus with unspecified complications; Z79.4 Long term (current) use of insulin; R50.9 Fever, unspecified; I10 Essential (primary) hypertension; R09.89 Other specified symptoms and signs involving the circulatory and respiratory systems; R05 Cough; J45.909 Unspecified asthma, uncomplicated
CPT/HCPCS: 36415; 87040; 83605; 85025; 80053; 81001; 84484; 87804; 71045; J7120; J0696; 96361; 96365; 99283

== ENCOUNTER 2020-05-07 17:21 | Inpatient (IN) | payer MEDICARE, BC ==
--- NOTE | 2020-05-07 17:52 | RADIOLOGY REPORT (SQ) ---
EXAM DESCRIPTION: CHEST SINGLE VIEW IMAGES COMPLETED DATE/TIME: 05/07/2020 5:45 pm REASON FOR STUDY: bed 19 generalized painwith chest pain COMPARISON: 08/24/2019 EXAM PARAMETERS: NUMBER OF VIEWS: One view. TECHNIQUE: Single frontal radiographic view of the chest acquired. RADIATION DOSE: NA LIMITATIONS: Low lung volumes. FINDINGS: LUNGS AND PLEURA: No opacities, masses or pneumothorax. No pleural effusion. MEDIASTINUM AND HILAR STRUCTURES: No masses. Contour normal. HEART AND VASCULAR STRUCTURES: Stable in appearance. Mild cardiomegaly. BONES: No acute findings. 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 OTHER: No other significant finding. IMPRESSION: Low lung volumes. Cardiomegaly. No acute findings. TECHNICAL DOCUMENTATION: JOB ID: [id number] 2010 [employer]- All Rights Reserved Reading location - IP/workstation name: [email or web address] M
[2020-05-07 17:56] LABS: ABSOLUTE BASOPHILS # (AUTO) 0.1 10^3/uL (0.0-0.2); ABSOLUTE EOSINOPHILS # (AUTO) 0.2 10^3/uL (0.0-0.6); ABSOLUTE LYMPHOCYTES (AUTO) 1.4 10^3/uL (0.5-4.7); ABSOLUTE MONOCYTES (AUTO) 1.2 10^3/uL (0.1-1.4); ABSOLUTE NEUT (AUTO) 7.9 10^3/uL (1.7-8.2); BASOPHILS % (AUTO) 0.5 % (0-2); EOSINOPHILS % (AUTO) 1.4 % (0-6); HEMATOCRIT 36.7 % (37.9-51.0); HEMOGLOBIN 12.2 g/dL (13.5-17.0); LYMPHOCYTES % (AUTO) 13.4 % (13-45); MEAN CORPUSCULAR HEMOGLOBIN 29.2 pg (27.0-33.4); MEAN CORPUSCULAR HGB CONC 33.2 g/dL (32.0-36.0); MEAN CORPUSCULAR VOLUME 88 fl (80-97); MONOCYTES % (AUTO) 11.2 % (3-13); PLATELET COUNT 229 10^3/uL (150-450); RED BLOOD COUNT 4.17 10^6/uL (4.35-5.55); RED CELL DISTRIBUTION WIDTH 15.7 % (11.5-14.0); SEGMENTED NEUTROPHILS % (AUTO) 73.5 % (42-78); TOTAL CELLS COUNTED % (AUTO) 100 %; WHITE BLOOD COUNT 10.8 10^3/uL (4.0-10.5)
[2020-05-07 18:17] LABS: ALBUMIN 3.6 g/dL (3.5-5.0); ALKALINE PHOSPHATASE 90 U/L (38-126); ANION GAP 10 (5-19); ASPARTATE AMINO TRANSFERASE 21 U/L (17-59); BILIRUBIN,DIRECT 0.2 mg/dL (0.0-0.4); BILIRUBIN,TOTAL 0.6 mg/dL (0.2-1.3); BLOOD UREA NITROGEN 19 mg/dL (7-20); CALCIUM 9.3 mg/dL (8.4-10.2); CARBON DIOXIDE 25 mmol/L (22-30); CHLORIDE 99 mmol/L (98-107); CREATINE KINASE 57 U/L (55-170); GLUCOSE 304 mg/dL (75-110); POTASSIUM 4.9 mmol/L (3.6-5.0); TOTAL PROTEIN 6.3 g/dL (6.3-8.2)
[2020-05-07 18:29] LABS: CREATINE KINASE MB 0.99 ng/mL (<4.55); TROPONIN I 0.019 ng/mL
--- NOTE | 2020-05-07 19:43 | ER Document Report ---
ED General - General Chief Complaint: Chest Pain Stated Complaint: GENERAL WEAKNESS/CHEST PAIN Time Seen by Provider: 05/07/20 19:40 Primary Care Provider: ABRAM CASTREJON PA-C [Primary Care Provider] - Follow up as needed TRAVEL OUTSIDE OF THE [place] IN LAST 30 DAYS: No - HPI Notes: 74-year-old male presents with chest pain. Patient states that he has had about 3-4 episodes of chest pain today. First episode was at 6 AM, he states he awoke with pain. Substernal, feels like a hammer is hitting him in the chest, nonradiating. Episodes of chest pain last for a couple minutes and then resolve. He denies increasing pain with exertion, however notes that because of the pain he has been so weak and unable to ambulate today. There is an episode where he was attempting to walk back from the bathroom, felt weakness and had to lie down onto the ground, he did not hit his head or have any loss of consciousness. Patient has also reported some inability to lie flat which is recent. He denies any known history of CAD. He states that he had a cath in January 2018, no stents were placed. He does have a history of A. fib. He sees Dr. Grimm of cardiology, had a stress test in September 2019 and believes it was normal. He denies a history of heart failure. No chest pain currently. 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 - Related Data Allergies/Adverse Reactions: No Known Allergies Allergy (Verified 08/24/19 18:18) Past Medical History - General Information source: Patient - Social History Smoking Status: Unknown if Ever Smoked Family History: Reviewed & Not Pertinent Patient has homicidal ideation: No - Past Medical History Cardiac Medical History: Reports: Hx Atrial Fibrillation, Hx Congestive Heart Fa ilure, Hx Hypercholesterolemia, Hx Hypertension Denies: Hx Coronary Artery Disease, Hx Heart Attack Pulmonary Medical History: Reports: Hx Asthma - H/O YRS AGO Denies: Hx Bronchitis, Hx COPD, Hx Pneumonia Neurological Medical History: Denies: Hx Cerebrovascular Accident, Hx Seizures Endocrine Medical History: Reports: Hx Diabetes Mellitus Type 2 Renal/ Medical History: Denies: Hx Peritoneal Dialysis GI Medical History: Reports: Hx Gastroesophageal Reflux Disease Musculoskeletal Medical History: Reports Hx Arthritis - R KNEE REPLACED Past Surgical History: Reports: Hx Cholecystectomy, Hx Orthopedic Surgery - r knee l elbowl hand - Immunizations Hx Diphtheria, Pertussis, Tetanus Vaccination: No - UNKNOWN Review of Systems - Review of Systems Constitutional: No symptoms reported EENT: No symptoms reported Cardiovascular: Chest pain, Orthopnea Respiratory: Short of breath Gastrointestinal: No symptoms reported Genitourinary: No symptoms reported Male Genitourinary: No symptoms reported Musculoskeletal: No symptoms reported Skin: No symptoms reported Hematologic/Lymphatic: Easy bruising Neurological/Psychological: Weakness - Baseline left leg Physical Exam - Vital signs Vitals: Temp Resp Pulse Ox 98.5 F 20 93 05/07/20 17:37 05/07/20 17:37 05/07/20 17:37 - General General appearance: Appears well, Alert In distress: None - HEENT Head: Normocephalic, Atraumatic Extraocular movements intact: Yes Pupils: PERRL - Respiratory Breath sounds: Normal - Cardiovascular Rhythm: Irregularly irregular Heart sounds: Normal auscultation Normal capillary refill: Yes - Abdominal Inspection: Obese Tenderness: Nontender - Extremities General lower extremity: Edema - Trace lower extremity - Neurological Neuro grossly intact: Yes Cognition: Normal Orientation: AAOx4 Speech: Normal Cranial nerves: Normal Cerebellar coordination: Normal Additional motor exam normals: Equal sausage maker, Plantar flexion Sensory: Normal - Psychological Associated symptoms: Normal affect - Skin Skin Temperature: Warm Course - Re-evaluation Re-evalutation: 74-year-old male here with multiple episodes of intermittent substernal chest pain today. Currently chest pain free. Additionally with orthopnea and what sounds like exercise tolerance. Reportedly negative cath 2 years ago. His story and risk factors are concerning for cardiac etiology of chest pain, heart failure could be a possibility as well. No rales, trace peripheral edema. Additionally given his history of Eliquis use and fall today, will obtain CT head to rule out bleed. 05/07/20 21:23 Slight increase in trop, still in indeterminate range. BNP is elevated which is new, lasix 20mg ordered. I discussed with Dr Leger corporate health consultant for cardiology, agree with patient admission and can be seen by cardiology tomorrow 05/07/20 22:18 >30 CrCl, treatment is Lovenox ordered 05/07/20 22:53 patient has been discussed with Dr Michelle for admission 05/07/20 23:40 Called to bedside as patient had onset of substernal chest pain. He is well- appearing, vital signs stable. Repeat EKG ordered 05/07/20 23:48 Repeat EKG without dynamic changes - Vital Signs Vital signs: Temp Pulse Resp BP Pulse Ox 98.2 F 21 H 120/69 96 05/07/20 23:06 05/07/20 23:03 05/07/20 23:03 05/07/20 23:03 - Laboratory Result Diagrams: 05/07/20 17:37 05/07/20 17:37 Laboratory results interpreted by me: 05/07/20 05/07/20 05/07/20 17:37 17:37 17:37 WBC 10.8 H RBC 4.17 L Hgb 12.2 L Hct 36.7 L RDW 15.7 H Sodium 133.6 L Est GFR (MDRD) Non-Af 58 L Glucose 304 H NT-Pro-B Natriuret Pep 2410 H - Diagnostic Test Radiology reviewed: Image reviewed, Reports reviewed - EKG Interpretation by Me Additional EKG results interpreted by me: EKG has interpreted by me. Atrial fibrillation, rate 80. Slightly widened QRS. QTc within normal limits. No ST segment elevation. 05/07/20 23:46 Repeat EKG obtained. Atrial fibrillation, rate 72. QRS and QTc similar to previous. No ST segment elevation. No dynamic changes. Discharge - Discharge Clinical Impression: Elevated brain natriuretic peptide (BNP) level, Elevated troponin Chest pain Qualifiers: Chest pain type: unspecified Qualified Code(s): R07.9 - Chest pain, unspecified Disposition: ADMITTED INPATIENT Admitting Provider: Miguel Angel (Hospitalist) Unit Admitted: Telemetry Referrals: ABRAM CASTREJON PA-C [Primary Care Provider] - Follow up as needed
[2020-05-07] MEDS ORDERED: ASPIRIN 81 MG TABLET, CHEWABLE PO ONE (19:46)
--- NOTE | 2020-05-07 19:51 | EKG REPORT ---
SEVERITY:- ABNORMAL ECG - ATRIAL FIBRILLATION LEFT ANTERIOR FASCICULAR BLOCK : Confirmed by: Ba Victoria 07-May-2020 19:50:01
[2020-05-07] MEDS ORDERED: FUROSEMIDE INJ/PF 20 MG/2 ML SDV IV ONE (21:08)
--- NOTE | 2020-05-07 21:23 | RADIOLOGY REPORT (SQ) ---
EXAM DESCRIPTION: CT HEAD WITHOUT IV CONTRAST COMPLETED DATE/TME: 05/07/2020 19:58 CLINICAL HISTORY: 74 years, Male, fall, on eliquis COMPARISON: None. TECHNIQUE: Axial images without IV contrast. Sagittal coronal reconstruction. Images stored on PACS. All CT scanners at this facility use dose modulation, iterative reconstruction, and/or weight based dosing when appropriate to reduce radiation dose to as low as reasonably achievable (ALARA). FINDINGS: Prominent ventriculomegaly. Much less prominent cortical sulci. Consistent with hydrocephalus. Shunt introduced through the right high frontal bone with the tip in the anterior body of the left lateral ventricle. No acute intra-axial or extra-axial abnormalities. Atherosclerotic disease. Paranasal sinuses without acute findings. Small retention cyst in the right maxillary sinus. Mastoid air cells and bony calvarium are unremarkable. IMPRESSION: 1. Hydrocephalus. Shunt present. Suggest clinical correlation if functioning. 2. No acute findings.
[2020-05-07] MEDS ORDERED: ENOXAPARIN SODIUM INJ 150 MG/1 ML DISP.SYRIN SUBCUT SCH (22:15)
[2020-05-08] MEDS ORDERED: ACETAMINOPHEN 325 MG TABLET PO PRN (00:01)
[2020-05-08] MEDS ORDERED: ONDANSETRON HCL INJ/PF 4 MG/2 ML SDV IV PRN (00:01)
[2020-05-08] MEDS ORDERED: MAG HYDROX/AL HYDROX/SIMETH SUSP 30 ML UDCUP PO PRN (00:01)
[2020-05-08] MEDS ORDERED: DEXTROSE 40% GEL 15 GM TUBE PO PRN ×2 (00:07)
[2020-05-08] MEDS ORDERED: DEXTROSE 50%-WATER 25 GM/50 ML DISP.SYRIN IV PRN ×2 (00:07)
[2020-05-08] MEDS ORDERED: GLUCAGON,HUMAN RECOMB 1 MG INJ IM PRN (00:07)
[2020-05-08] MEDS ORDERED: INSULIN GLARGINE,HUM.REC.ANLOG 1,000 UNIT/10 ML VIAL SUBCUT ONE (00:10)
[2020-05-08] MEDS ORDERED: PSYLLIUM SEED-SF 5.85 GM PACKET PO PRN (00:14)
[2020-05-08] MEDS ORDERED: NITROGLYCERIN 0.4 MG/TAB 25 TAB/BOTTLE SL PRN (00:18)
[2020-05-08] MEDS ORDERED: FUROSEMIDE INJ/PF 20 MG/2 ML SDV IV ONE ×3 (00:32)
--- NOTE | 2020-05-08 00:49 | PDOC H&P ---
History of Present Illness Admission Date/PCP: ABRAM CASTREJON PA-C Patient complains of: Fall, orthopnea, chest pain History of Present Illness: LOPEZ WALSH is a 74 year old male with history of diastolic heart failure, hypertension, atrial fibrillation on Eliquis, CVA with left-sided weakness, hydrocephalus with ventricular shunt who presents to the hospital for evaluation after fall. Today, patient was walking towards the bathroom with his walker when he suddenly felt quite weak in his legs and fell. He denies any loss of consciousness. In the ER head CT was done which was unremarkable for any traumatic events. Patient also complained of chest pain which is substernal and started earlier yesterday lasting about 4 minutes with radiation to both shoulders, but no particular alleviating or aggravating factors. He describes this as a 9/10 in severity and like somebody was punching his chest. Denies prior episodes. Had a recurrent episode of chest pain shortly before our encounter which also resolved after about 4 minutes with similar qualities. He had a stress test done earlier this year but his no him know the result. Had left heart cath in 2018. Follows with [facility]. Also complains of orthopnea which has been present for 2 years now but with recent worsening. Patient's also divulges that patient is weak in his legs especially his left leg with difficulty ambulating. Past Medical History Cardiac Medical History: Reports: Atrial Fibrillation, Congestive Heart Failure, Hyperlipidema, Hypertension Denies: Coronary Artery Disease, Myocardial Infarction Pulmonary Medical History: Reports: Asthma - H/O YRS AGO Denies: Bronchitis, Chronic Obstructive Pulmonary Disease (COPD), Pneumonia Neurological Medical History: Denies: Seizures Endocrine Medical History: Reports: Diabetes Mellitus Type 2 GI Medical History: Reports: Gastroesophageal Reflux Disease Musculoskeltal Medical History: Reports: Arthritis - R KNEE REPLACED Hematology: Reports: Anemia Past Surgical History Past Surgical History: Reports: Cholecystectomy, Orthopedic Surgery - r knee l elbowl hand Social History Smoking Status: Unknown if Ever Smoked Frequency of Alcohol Use: None Hx Recreational Drug Use: No - Advance Directive Resuscitation Status: Do Not Resuscitate - DNR/DNI Family History Family History: CAD, Hypertension Parental Family History Reviewed: Yes Children Family History Reviewed: NA Sibling(s) Family History Reviewed.: Yes Medication/Allergy Home Medications: Apixaban [Eliquis 2.5 mg Tablet] 2.5 mg PO BID 10/18/18 Atorvastatin Calcium [Lipitor 80 mg Tablet] 80 mg PO QHS 10/18/18 Ferrous Sulfate [Iron] 325 mg PO BID 10/18/18 Furosemide [Lasix] 40 mg PO DAILY 10/18/18 Gabapentin [Neurontin 300 mg Capsule] 300 mg PO BID 10/18/18 Insulin Glargine,Hum.rec.anlog [Lantus Insulin 100 Unit/1 ml 10 ml] 40 unit SUBCUT QPM 10/18/18 Insulin Glargine,Hum.rec.anlog [Lantus Insulin 100 Unit/1 ml 10 ml] 60 unit SUBCUT QAM 10/18/18 Insulin Glulisine [Apidra Insulin (Glulisine) 100 unit/mL] 16 unit SUBCUT ASDIR PRN 10/18/18 Insulin Glulisine [Apidra Insulin (Glulisine) 100 unit/mL] 44 unit SUBCUT ASDIR PRN 10/18/18 Levothyroxine Sodium 50 mcg PO DAILY 10/18/18 Metformin HCl 850 mg PO BID 10/18/18 Metoprolol Succinate [Toprol XL 100 mg Tablet] 100 mg PO DAILY 10/18/18 Multivit-Min/FA/Lycopen/Lutein [Centrum Silver Men Tablet] 1 each PO DAILY 10/18/18 Pantoprazole Sodium [Protonix [address] Tablet] 20 mg PO QAM 10/18/18 Potassium Chloride [Klor-Con 10 Meq Capsule ER] 10 meq PO Q12 10/18/18 Psyllium Husk [Metamucil] 660 gm PO BID 10/18/18 Cefdinir 300 mg PO BID #20 capsule 08/25/19 Tamsulosin HCl [Flomax] 0.4 mg PO HSP PRN #14 cap.er.24h 08/25/19 Allergies/Adverse Reactions: No Known Allergies Allergy (Verified 08/24/19 18:18) Review of Systems Constitutional: ABSENT: chills, fever(s), headache(s) Eyes: ABSENT: visual disturbances Ears: ABSENT: hearing changes Nose, Mouth, and Throat: ABSENT: headache(s) Cardiovascular: PRESENT: chest pain, dyspnea on exertion, edema, orthropnea Respiratory: PRESENT: cough - Mild occasional. ABSENT: dyspnea, sputum Gastrointestinal: ABSENT: abdominal pain, diarrhea, nausea, vomiting Genitourinary: ABSENT: dysuria Musculoskeletal: ABSENT: back pain Integumentary: ABSENT: diaphoresis Neurological: ABSENT: confusion, dizziness, syncope Psychiatric: ABSENT: anxiety, depression Endocrine: ABSENT: polyuria Allergic/Immunologic: ABSENT: seasonal rhinorrhea Physical Exam Vital Signs: Temp Pulse Resp BP Pulse Ox 98.2 F 21 H 113/70 96 05/07/20 23:06 05/08/20 00:01 05/08/20 00:01 05/08/20 00:01 Intake & Output 05/06/20 05/07/20 05/08/20 06:59 06:59 06:59 Output Total 700 Balance -700 Weight 136.078 kg General appearance: PRESENT: no acute distress, cooperative, morbidly obese Head exam: PRESENT: normocephalic Eye exam: PRESENT: EOMI, other - Xanthelasma Neck exam: ABSENT: JVD, tracheal deviation Respiratory exam: PRESENT: rales - Bilateral lower lung lang, symmetrical, unlabored. ABSENT: tachypnea, wheezes Cardiovascular exam: PRESENT: irregular rhythm, +S1, +S2. ABSENT: tachycardia GI/Abdominal exam: PRESENT: soft. ABSENT: rebound, rigid, tenderness Extremities exam: PRESENT: pedal edema, +1 edema. ABSENT: calf tenderness Neurological exam: PRESENT: alert, awake, oriented to person, oriented to place, oriented to time, oriented to situation Psychiatric exam: ABSENT: agitated, anxious Focused psych exam: ABSENT: pressured speech Skin exam: ABSENT: jaundice Results Laboratory Results: 05/07/20 17:37 05/07/20 17:37 05/07/20 05/07/20 17:37 17:37 WBC 10.8 H RBC 4.17 L Hgb 12.2 L Hct 36.7 L MCV 88 MCH 29.2 MCHC 33.2 RDW 15.7 H Plt Count 229 Seg Neutrophils % 73.5 Sodium 133.6 L Potassium 4.9 Chloride 99 Carbon Dioxide 25 Anion Gap 10 BUN 19 Creatinine 1.22 Est GFR ( Amer) > 60 Glucose 304 H Calcium 9.3 Total Bilirubin 0.6 AST 21 Alkaline Phosphatase 90 Total Protein 6.3 Albumin 3.6 05/07/20 05/07/20 05/07/20 17:37 17:37 17:37 Creatine Kinase 57 CK-MB (CK-2) 0.99 Troponin I 0.019 NT-Pro-B Natriuret Pep 2410 H 05/07/20 20:30 Creatine Kinase CK-MB (CK-2) Troponin I 0.026 NT-Pro-B Natriuret Pep Impressions: Chest X-Ray 05/07/20 17:33 IMPRESSION: Low lung volumes. Cardiomegaly. No acute findings. Head CT 05/07/20 19:58 IMPRESSION: 1. Hydrocephalus. Shunt present. Suggest clinical correlation if functioning. 2. No acute findings. Assessment and Plan - Diagnosis (1) Acute on chronic diastolic heart failure Is this a current diagnosis for this admission?: Yes Plan: Patient has history of diastolic CHF. Currently with elevated BNP, worsening orthopnea, bilateral crackles on exam and lower extremity edema We will diurese with IV Lasix 40 mg twice daily Cardiology has been consulted Strict I's and O's, daily weights, telemetry Fluid restriction 1500 cc Resume patient's regimen of lisinopril for hypertension. (2) Chest pain Qualifiers: Chest pain type: unspecified Qualified Code(s): R07.9 - Chest pain, unspecified Is this a current diagnosis for this admission?: Yes Plan: Troponin is minimally elevated but showing flat trend. Will repeat another level now. Patient does have multiple risk factors for CAD and notably xanthelasma indicative of dyslipidemia Cardiology has been consulted Current episodes only lasting about 4 minutes If recurs, can check for response to sublingual nitro Check lipid panel Continue atorvastatin Daily aspirin I have placed Doc to nurse communication to obtain records [facility] as patient had a nuclear stress test in September 2019 and left heart cath in 2017. (3) Diabetes mellitus type 2 in obese Is this a current diagnosis for this admission?: Yes Plan: Home regimen: Metformin, Humalog 60 units before breakfast and 48 units before dinner, Lantus 60 units before breakfast and 40 units at bedtime. Will place on Lantus 40 units every 12 hours and Humalog 15 units 3 times daily AC while inpatient--adjust as needed ADA diet, Accu-Cheks, sliding scale (4) Ambulatory dysfunction Is this a current diagnosis for this admission?: Yes Plan: Has history of left-sided weakness from previous CVA. Having weakness in left leg which affects ambulation. Walks with a walker. 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 (5) Atrial fibrillation Qualifiers: Atrial fibrillation type: unspecified Qualified Code(s): I48.91 - Unspecified atrial fibrillation Is this a current diagnosis for this admission?: Yes Plan: Continue Toprol-XL and Eliquis. Currently in A. fib but rate controlled. (6) Suspected sleep apnea Is this a current diagnosis for this admission?: Yes Plan: High Mallampati score, occasionally desaturates when he sleeps. I recommended to patient to get an outpatient sleep study (7) Morbid obesity with BMI of 40.0-44.9, adult Is this a current diagnosis for this admission?: Yes Plan: Dietitian consulted for weight reduction counseling - Time Time Spent with patient: 35 or more minutes Anticipated Discharge Disposition: Home, Self Care Anticipated Discharge Timeframe: within 48 hours
--- NOTE | 2020-05-08 00:51 | ADVANCED CARE ---
- Diagnosis (1) Acute on chronic diastolic heart failure Diagnosis Current: Yes (2) Chest pain Diagnosis Current: Yes Resuscitation Status: Do Not Resuscitate - DNR/DNI Discussion: Discussed with patient and patient's at bedside. Discussed patient's issues. Patient has a living well already and wants to be DNR/DNI. He also does not want intubation even in the absence of cardiac arrest. Otherwise wants full treatment and he is okay with invasive procedures if needed such as left heart cath. Time Spent: 18 minutes
[2020-05-08] MEDS ORDERED: LEVOTHYROXINE SODIUM 0.05 MG TABLET PO SCH (06:00)
[2020-05-08] MEDS ORDERED: INSULIN LISPRO 100 UNIT/ML 3 ML VIAL SUBCUT SCH ×2 (08:00)
[2020-05-08] MEDS ORDERED: FUROSEMIDE INJ/PF 40 MG/4 ML SDV IV SCH (10:00)
[2020-05-08] MEDS: FUROSEMIDE INJ/PF 40 MG/4 ML SDV IV SCH ×2 (10:45→18:21)
[2020-05-08] MEDS: LISINOPRIL 10 MG TABLET PO SCH (10:46)
[2020-05-08] MEDS: APIXABAN 5 MG TABLET PO SCH ×2 (10:46→22:30)
[2020-05-08] MEDS: DOCUSATE SODIUM 100 MG CAPSULE PO SCH ×2 (10:46→18:19)
[2020-05-08] MEDS: ASPIRIN 81 MG TABLET, ENT COATED PO SCH (10:46)
[2020-05-08] MEDS: METOPROLOL SUCCINATE 50 MG TAB.SR.24H PO SCH (10:46)
[2020-05-08] MEDS: MAGNESIUM OXIDE 400 MG TABLET PO SCH ×2 (10:46→18:21)
[2020-05-08] MEDS: LEVOTHYROXINE SODIUM 0.05 MG TABLET PO SCH (10:46)
[2020-05-08] MEDS: POTASSIUM CHLORIDE 10 MEQ TABLET.ER PO SCH (10:46)
[2020-05-08] MEDS: FOLIC ACID 1 MG TABLET PO SCH (10:47)
[2020-05-08] MEDS: INSULIN GLARGINE,HUM.REC.ANLOG 1,000 UNIT/10 ML VIAL SUBCUT SCH ×2 (10:47→22:31)
[2020-05-08] MEDS: INSULIN LISPRO 100 UNIT/ML 3 ML VIAL SUBCUT SCH ×7 (10:48→22:30)
[2020-05-08] MEDS: ALLOPURINOL 100 MG TABLET PO SCH (11:22)
[2020-05-08] MEDS: PANTOPRAZOLE SODIUM 20 MG TABLET.DR PO SCH (16:00)
--- NOTE | 2020-05-08 19:25 | PDOC CONSULTATION ---
Consultation Consult Date: 05/08/20 Attending physician:: TARUN GUERRIER Provider Consulted: IVET CAGE Consult reason:: Congestive heart failure, chest pain History of Present Illness Admission Date/PCP: 05/08/20 00:26 ABRAM CASTREJON PA-C Patient complains of: Chest pain History of Present Illness: LOPEZ WALSH is a 74 year old male With the following active problems 1. Atrial fibrillation 2. Systemic anticoagulation 3. Congestive heart failure 4. Long-term systemic anticoagulation 5. 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 At the time of admission he was experiencing a bout of chest pain which since admission has completely resolved. His cardiac biomarker profile has been relatively flat. He is no longer complaining of chest pain at this moment. Apparently he has had a ischemic evaluation and also a cardiac ablation performed in the recent past as late as 2018. Patient has not knowledgeable about the results of these tests. No familial illnesses are reported Patient presently does not smoke tobacco. Past Medical History Cardiac Medical History: Reports: Atrial Fibrillation, Congestive Heart Failure, Hyperlipidema, Hypertension Denies: Coronary Artery Disease, Myocardial Infarction Pulmonary Medical History: Reports: Asthma - H/O YRS AGO Denies: Bronchitis, Chronic Obstructive Pulmonary Disease (COPD), Pneumonia Neurological Medical History: Denies: Seizures Endocrine Medical History: Reports: Diabetes Mellitus Type 2 GI Medical History: Reports: Gastroesophageal Reflux Disease Musculoskeltal Medical History: Reports: Arthritis - R KNEE REPLACED Psychiatric Medical History: Denies: Depression Hematology: Reports: Anemia Past Surgical History Past Surgical History: Reports: Cholecystectomy, Orthopedic Surgery - r knee l elbowl hand Social History Smoking Status: Former Smoker Frequency of Alcohol Use: None Hx Recreational Drug Use: No Drugs: None - Advance Directive Resuscitation Status: Do Not Resuscitate - DNR/DNI Family History Family History: CAD, Hypertension Parental Family History Reviewed: No - No familial illnesses Children Family History Reviewed: NA Sibling(s) Family History Reviewed.: NA Medication/Allergy Home Medications: Apixaban [Eliquis 2.5 mg Tablet] 5 mg PO BIDBS 10/18/18 Atorvastatin Calcium [Lipitor 80 mg Tablet] 80 mg PO QHS 10/18/18 Furosemide [Lasix] 40 mg PO QAM 10/18/18 Insulin Glargine,Hum.rec.anlog [Lantus Insulin 100 Unit/1 ml 10 ml] 40 unit SUBCUT QPM 10/18/18 Insulin Glargine,Hum.rec.anlog [Lantus Insulin 100 Unit/1 ml 10 ml] 60 unit SUBCUT QAM 10/18/18 Levothyroxine Sodium 50 mcg PO Q6AM 10/18/18 Metoprolol Succinate [Toprol XL 100 mg Tablet] 100 mg PO QAM 10/18/18 Multivit-Min/FA/Lycopen/Lutein [Centrum Silver Men Tablet] 1 each PO QAM 10/18/18 Pantoprazole Sodium [Protonix [address] Tablet] 20 mg PO ACSUPPER 10/18/18 Potassium Chloride [Klor-Con 10 Meq Capsule ER] 10 meq PO WBRKFST 10/18/18 Allopurinol [Zyloprim 100 mg Tablet] 100 mg PO WBRKFST 05/08/20 Folic Acid [Folvite 1 mg Tablet] 1 mg PO WBRKFST 05/08/20 Insulin Lispro [Humalog Insulin (Lispro) 100 unit/mL] 16 units SQ WBRKFST 05/08/20 Insulin Lispro [Humalog Insulin (Lispro) 100 unit/mL] 48 units SQ WSUPPER 05/08/20 Lisinopril [Zestril] 20 mg PO ACBRKFST 05/08/20 Magnesium Oxide [Mag-Ox 400 mg Tablet] 400 mg PO BIDBS 05/08/20 Metformin HCl [Metformin HCl ER] 750 mg PO BIDBS 05/08/20 Pregabalin [Lyrica] 200 mg PO WSUPPER 05/08/20 Psyllium Husk (with Sugar) [Metamucil Packet] 6.8 gm PO BIDBS 05/08/20 Allergies/Adverse Reactions: No Known Allergies Allergy (Verified 08/24/19 18:18) Review of Systems Constitutional: PRESENT: as per HPI Eyes: PRESENT: as per HPI Cardiovascular: PRESENT: chest pain Respiratory: PRESENT: dyspnea Integumentary: ABSENT: as per HPI, diaphoresis, erythema, lesions, pruritus, rash, wounds, other Neurological: PRESENT: as per HPI, abnormal gait Physical Exam Vital Signs: Temp Pulse Resp BP Pulse Ox 97.5 F 59 L 19 159/89 H 92 05/08/20 17:58 05/08/20 17:58 05/08/20 17:58 05/08/20 17:58 05/08/20 17:58 Intake & Output 05/07/20 05/08/20 05/09/20 06:59 06:59 06:59 Output Total 1450 300 Balance -1450 -300 Weight 115.7 kg 151.7 kg General appearance: PRESENT: no acute distress, cooperative, obese Head exam: PRESENT: atraumatic, normocephalic Eye exam: PRESENT: conjunctiva pale Neck exam: PRESENT: JVD Respiratory exam: PRESENT: crackles, decreased breath sounds, symmetrical, unlabored Cardiovascular exam: PRESENT: irregular rhythm, +S1, +S2 Rectal exam: PRESENT: deferred Neurological exam: PRESENT: alert, awake, oriented to person, oriented to place, oriented to time, oriented to situation Psychiatric exam: PRESENT: appropriate affect Skin exam: PRESENT: dry, intact Results Laboratory Results: 05/07/20 17:37 05/07/20 17:37 05/07/20 05/07/20 05/07/20 17:37 17:37 17:37 Creatine Kinase 57 CK-MB (CK-2) 0.99 Troponin I 0.019 NT-Pro-B Natriuret Pep 2410 H 05/07/20 05/08/20 20:30 00:07 Creatine Kinase CK-MB (CK-2) Troponin I 0.026 0.028 NT-Pro-B Natriuret Pep EKG Comments: Chest x-ray with no acute findings Twelve-lead EKG. Independently reviewed by me. Atrial fibrillation with controlled ventricular response, left anterior fascicul ar block Impressions: Chest X-Ray 05/07/20 17:33 IMPRESSION: Low lung volumes. Cardiomegaly. No acute findings. Head CT 05/07/20 19:58 IMPRESSION: 1. Hydrocephalus. Shunt present. Suggest clinical correlation if functioning. 2. No acute findings. Assessment & Plan - Diagnosis (1) Chest pain Qualifiers: Chest pain type: unspecified Qualified Code(s): R07.9 - Chest pain, unspecified Is this a current diagnosis for this admission?: Yes Plan: Cardiac biomarker profile is relatively flat EKG without evidence of myocardial ischemia Recent ischemic evaluation including cardiac catheterization as late as 2017 is reported. It would be most useful to review records from those studies At the moment patient is chest pain-free. Unclear etiology of chest pain at this point. It is possible that vascular congestion may cause some chest discomfort in this patient. (2) Elevated troponin Is this a current diagnosis for this admission?: Yes Plan: Relatively flat troponin profile. No symptoms of chest pain at the moment. We will continue to monitor Patient has had relatively recent cardiac catheterization we will try to obtain the reports of that (3) Acute on chronic diastolic heart failure Is this a current diagnosis for this admission?: Yes Plan: Exam is difficult on this patient. Radiological signs of heart failure are minimal. May have had mild decompensation and congestive heart failure. Watch input and output closely. Watch volume status. Obtain most recent echocardiogram available. (4) Atrial fibrillation Qualifiers: Atrial fibrillation type: unspecified Qualified Code(s): I48.91 - Unspecified atrial fibrillation Is this a current diagnosis for this admission?: Yes Plan: Rate controlled atrial fibrillation Asymptomatic Continue systemic anticoagulation
--- NOTE | 2020-05-08 19:46 | EKG REPORT ---
SEVERITY:- ABNORMAL ECG - ATRIAL FIBRILLATION LAD, CONSIDER LEFT ANTERIOR FASCICULAR BLOCK BORDERLINE T WAVE ABNORMALITIES : Confirmed by: Ba Victoria 08-May-2020 19:45:50
[2020-05-08] MEDS ORDERED: INFLUENZA QUAD (6MOS+) 2020-21 VAC 0.5 ML SYR IM ONE (20:00)
[2020-05-08] MEDS ORDERED: INSULIN GLARGINE,HUM.REC.ANLOG 1,000 UNIT/10 ML VIAL (PYX) SUBCUT ONE (22:28)
[2020-05-08] MEDS: PREGABALIN 100 MG CAPSULE PO SCH (22:30)
[2020-05-08] MEDS: ATORVASTATIN CALCIUM 80 MG TABLET PO SCH (22:32)
[2020-05-09] MEDS: LEVOTHYROXINE SODIUM 0.05 MG TABLET PO SCH (05:35)
[2020-05-09 05:52] LABS: ANION GAP 12 (5-19); BLOOD UREA NITROGEN 24 mg/dL (7-20); CALCIUM 9.4 mg/dL (8.4-10.2); CARBON DIOXIDE 25 mmol/L (22-30); CHLORIDE 100 mmol/L (98-107); GLUCOSE 169 mg/dL (75-110); PHOSPHORUS 4.8 mg/dL (2.5-4.5); POTASSIUM 3.9 mmol/L (3.6-5.0)
[2020-05-09] MEDS ORDERED: (PENDING PHARMACY ID) (Lisinopril [Zestril] 20 MG) PO SCH (08:00)
[2020-05-09] MEDS: INSULIN LISPRO 100 UNIT/ML 3 ML VIAL SUBCUT SCH ×7 (08:23→22:00)
[2020-05-09] MEDS: INSULIN GLARGINE,HUM.REC.ANLOG 1,000 UNIT/10 ML VIAL SUBCUT SCH ×2 (10:57→22:00)
[2020-05-09] MEDS: LISINOPRIL 10 MG TABLET PO SCH (10:58)
[2020-05-09] MEDS: APIXABAN 5 MG TABLET PO SCH ×2 (10:58→22:00)
[2020-05-09] MEDS: METOPROLOL SUCCINATE 50 MG TAB.SR.24H PO SCH (10:58)
[2020-05-09] MEDS: POTASSIUM CHLORIDE 10 MEQ TABLET.ER PO SCH (10:58)
[2020-05-09] MEDS: MAGNESIUM OXIDE 400 MG TABLET PO SCH ×2 (10:58→18:44)
[2020-05-09] MEDS: ALLOPURINOL 100 MG TABLET PO SCH (10:58)
[2020-05-09] MEDS: ASPIRIN 81 MG TABLET, ENT COATED PO SCH (10:58)
[2020-05-09] MEDS: FOLIC ACID 1 MG TABLET PO SCH (10:58)
[2020-05-09] MEDS: DOCUSATE SODIUM 100 MG CAPSULE PO SCH ×2 (10:58→18:44)
[2020-05-09] MEDS: PANTOPRAZOLE SODIUM 20 MG TABLET.DR PO SCH (16:57)
[2020-05-09] MEDS ORDERED: (PENDING PHARMACY ID) (Pregabalin [Lyrica] 200 MG) PO SCH (17:00)
--- NOTE | 2020-05-09 17:42 | PDOC PROGRESS REPORT ---
Subjective Progress Note for:: 05/09/20 Subjective:: No adverse events overnight. No new complaints. Vital signs been stable. Eating and drinking without difficulty. His creatinine had bumped a little bit this morning and his volume status appears to be approaching normal and so we have stopped the Lasix for today. He said he had a cardiac catheterization at the [facility] in 2018. Reason For Visit: CHF EXACERBATION, CHEST PAIN Physical Exam Vital Signs: Temp Pulse Resp BP Pulse Ox 97.6 F 73 17 105/63 100 05/09/20 15:14 05/09/20 15:14 05/09/20 15:14 05/09/20 15:14 05/09/20 15:14 Intake & Output 05/08/20 05/09/20 05/10/20 06:59 06:59 06:59 Intake Total 260 140 Output Total 1450 600 Balance -1450 -340 140 Weight 115.7 kg 134.9 kg General appearance: PRESENT: no acute distress, cooperative, disheveled, morbidly obese Respiratory exam: PRESENT: crackles - Faint bibasilar, symmetrical, unlabored. ABSENT: accessory muscle use, chest wall tenderness, prolonged expiratory phas, rhonchi, tachypnea, wheezes Cardiovascular exam: PRESENT: irregular rhythm, +S1, +S2 Pulses: PRESENT: normal carotid pulses Vascular exam: PRESENT: normal capillary refill GI/Abdominal exam: PRESENT: normal bowel sounds, soft. ABSENT: distended, guarding, rebound, tenderness Extremities exam: ABSENT: clubbing, pedal edema Musculoskeletal exam: PRESENT: normal inspection. ABSENT: deformity Neurological exam: PRESENT: awake, oriented to person, oriented to place, oriented to situation Psychiatric exam: PRESENT: flat affect Skin exam: PRESENT: dry, warm Results Laboratory Results: 05/07/20 17:37 05/09/20 05:20 05/09/20 05:20 Sodium 137.2 Potassium 3.9 Chloride 100 Carbon Dioxide 25 Anion Gap 12 BUN 24 H Creatinine 1.44 H Est GFR ( Amer) 58 L Glucose 169 H Calcium 9.4 Phosphorus 4.8 H Magnesium 1.5 L Lipase 84.5 05/07/20 05/07/20 05/07/20 17:37 17:37 17:37 Creatine Kinase 57 CK-MB (CK-2) 0.99 Troponin I 0.019 NT-Pro-B Natriuret Pep 2410 H 05/07/20 05/08/20 20:30 00:07 Creatine Kinase CK-MB (CK-2) Troponin I 0.026 0.028 NT-Pro-B Natriuret Pep Impressions: Chest X-Ray 05/07/20 17:33 IMPRESSION: Low lung volumes. Cardiomegaly. No acute findings. Head CT 05/07/20 19:58 IMPRESSION: 1. Hydrocephalus. Shunt present. Suggest clinical correlation if functioning. 2. No acute findings. Assessment and Plan - Diagnosis (1) Acute on chronic diastolic heart failure Is this a current diagnosis for this admission?: Yes (2) Atrial fibrillation Qualifiers: Atrial fibrillation type: unspecified Qualified Code(s): I48.91 - Unspecified atrial fibrillation Is this a current diagnosis for this admission?: Yes (3) Chest pain Qualifiers: Chest pain type: unspecified Qualified Code(s): R07.9 - Chest pain, unspecified Is this a current diagnosis for this admission?: Yes (4) Diabetes mellitus type 2 in obese Is this a current diagnosis for this admission?: Yes (5) Elevated troponin Is this a current diagnosis for this admission?: Yes (6) Morbid obesity with BMI of 40.0-44.9, adult Is this a current diagnosis for this admission?: Yes - Plan Summary Summary: He is chest pain-free. Diuretics on hold for right now as previously noted due to slight elevation in creatinine. Attempting to get cardiac records from [facility]. Continue rate control and anticoagulation. Troponins have been flat. Further recommendations from cardiology pending. - Time Time Spent with patient: 15-24 minutes Anticipated Discharge Disposition: Home with Home Health Anticipated Discharge Timeframe: within 72 hours
--- NOTE | 2020-05-09 18:14 | CDI QUERY ---
<AMY JUNIOR - Last Filed: 05/09/20 18:13> CDI Query CDI Review: We are seeking further clarification of documentation to reflect the severity of illness of your patient. Documented in the H&P: Atrial fibrillation Qualifiers: Atrial fibrillation type: unspecified Qualified Code(s): I48.91 - Unspec ified atrial fibrillation Is this a current diagnosis for this admission?: Yes Plan: Continue Toprol-XL and Eliquis. Currently in A. fib but rate controlled Based on your medical judgement, can you further clarify in the Progress Notes if the Atrial Fibrillation can be further specified: Persistent Atrial fibrillation Chronic (Permanent) Atrial fibrillation Other Unable to determine Thank you for your consideration. LISSETH DuttonN RN Clinical Ppap Coordinator Physician Advisor <TJ DENISE - Last Filed: 05/09/20 23:13> CDI Query Agree with Query: No - This is a redundant query. I already specified "unspecified" in my note aka "Unable to determine"
--- NOTE | 2020-05-09 18:37 | PDOC PROGRESS REPORT ---
Subjective Progress Note for:: 05/09/20 Subjective:: Patient was seen and examined. Sitting comfortably in bed. He is not agitated. Reports no chest pain. Reason For Visit: CHF EXACERBATION, CHEST PAIN Physical Exam Vital Signs: Temp Pulse Resp BP Pulse Ox 97.6 F 73 17 105/63 100 05/09/20 15:14 05/09/20 15:14 05/09/20 15:14 05/09/20 15:14 05/09/20 15:14 Intake & Output 05/08/20 05/09/20 05/10/20 06:59 06:59 06:59 Intake Total 260 380 Output Total 1450 600 Balance -1450 -340 380 Weight 115.7 kg 134.9 kg General appearance: PRESENT: cooperative, obese, well-developed, well-nourished Head exam: PRESENT: atraumatic, normocephalic Eye exam: PRESENT: EOMI Respiratory exam: PRESENT: symmetrical, unlabored Cardiovascular exam: PRESENT: irregular rhythm, +S1, +S2 Pulses: PRESENT: normal radial pulses GI/Abdominal exam: PRESENT: soft Rectal exam: PRESENT: deferred Neurological exam: PRESENT: alert, awake, oriented to person, oriented to place Psychiatric exam: PRESENT: appropriate affect Skin exam: PRESENT: dry, intact Results Laboratory Results: 05/07/20 17:37 05/09/20 05:20 05/09/20 05:20 Sodium 137.2 Potassium 3.9 Chloride 100 Carbon Dioxide 25 Anion Gap 12 BUN 24 H Creatinine 1.44 H Est GFR ( Amer) 58 L Glucose 169 H Calcium 9.4 Phosphorus 4.8 H Magnesium 1.5 L Lipase 84.5 05/07/20 05/07/20 05/07/20 17:37 17:37 17:37 Creatine Kinase 57 CK-MB (CK-2) 0.99 Troponin I 0.019 NT-Pro-B Natriuret Pep 2410 H 05/07/20 05/08/20 20:30 00:07 Creatine Kinase CK-MB (CK-2) Troponin I 0.026 0.028 NT-Pro-B Natriuret Pep Impressions: Chest X-Ray 05/07/20 17:33 IMPRESSION: Low lung volumes. Cardiomegaly. No acute findings. Head CT 05/07/20 19:58 IMPRESSION: 1. Hydrocephalus. Shunt present. Suggest clinical correlation if functioning. 2. No acute findings. Assessment & Plan - Diagnosis (1) Chest pain Qualifiers: Chest pain type: unspecified Qualified Code(s): R07.9 - Chest pain, unspecified Is this a current diagnosis for this admission?: Yes Plan: Chest pain is completely resolved Troponin profile is flat EKG without ischemic changes Possible vascular congestion may have caused some chest discomfort which was perceived this pain perhaps. Definitely no ischemic symptoms at the moment Unable to procure outpatient work-up including stress testing and cardiac authorization which was apparently performed. We will hold off on pursuing test unless we get get this information. (2) Elevated troponin Is this a current diagnosis for this admission?: Yes Plan: Flat troponin profile. Unlikely to be myocardial ischemia especially with absent chest pain (3) Acute on chronic diastolic heart failure Is this a current diagnosis for this admission?: Yes Plan: Possible component of congestive heart failure Volume status is hard to assess (4) Atrial fibrillation Qualifiers: Atrial fibrillation type: unspecified Qualified Code(s): I48.91 - Unspecified atrial fibrillation Is this a current diagnosis for this admission?: Yes Plan: Rate controlled atrial fibrillation Continue systemic anticoagulation Asymptomatic Rate control strategy only
[2020-05-09] MEDS: PREGABALIN 100 MG CAPSULE PO SCH (22:00)
[2020-05-09] MEDS: ATORVASTATIN CALCIUM 80 MG TABLET PO SCH (22:00)
--- NOTE | 2020-05-09 22:05 | EKG REPORT ---
SEVERITY:- ABNORMAL ECG - ATRIAL FIBRILLATION LEFT ANTERIOR FASCICULAR BLOCK : Confirmed by: Ba Victoria 09-May-2020 22:04:15
[2020-05-10] MEDS: LEVOTHYROXINE SODIUM 0.05 MG TABLET PO SCH (06:02)
[2020-05-10 07:32] LABS: ANION GAP 11 (5-19); BLOOD UREA NITROGEN 28 mg/dL (7-20); CALCIUM 9.3 mg/dL (8.4-10.2); CARBON DIOXIDE 25 mmol/L (22-30); CHLORIDE 100 mmol/L (98-107); GLUCOSE 167 mg/dL (75-110); PHOSPHORUS 4.7 mg/dL (2.5-4.5); POTASSIUM 4.4 mmol/L (3.6-5.0)
[2020-05-10] MEDS: INSULIN LISPRO 100 UNIT/ML 3 ML VIAL SUBCUT SCH ×7 (08:27→22:16)
[2020-05-10] MEDS: ASPIRIN 81 MG TABLET, ENT COATED PO SCH (10:49)
[2020-05-10] MEDS: DOCUSATE SODIUM 100 MG CAPSULE PO SCH ×2 (10:49→18:34)
[2020-05-10] MEDS: MAGNESIUM OXIDE 400 MG TABLET PO SCH ×2 (10:49→18:34)
[2020-05-10] MEDS: ALLOPURINOL 100 MG TABLET PO SCH (10:49)
[2020-05-10] MEDS: LISINOPRIL 10 MG TABLET PO SCH (10:49)
[2020-05-10] MEDS: METOPROLOL SUCCINATE 50 MG TAB.SR.24H PO SCH (10:49)
[2020-05-10] MEDS: FOLIC ACID 1 MG TABLET PO SCH (10:50)
[2020-05-10] MEDS: POTASSIUM CHLORIDE 10 MEQ TABLET.ER PO SCH (10:50)
[2020-05-10] MEDS: APIXABAN 5 MG TABLET PO SCH ×2 (10:50→22:16)
[2020-05-10] MEDS: INSULIN GLARGINE,HUM.REC.ANLOG 1,000 UNIT/10 ML VIAL SUBCUT SCH ×2 (10:50→22:15)
[2020-05-10] MEDS: PANTOPRAZOLE SODIUM 20 MG TABLET.DR PO SCH (16:08)
--- NOTE | 2020-05-10 17:49 | PDOC PROGRESS REPORT ---
Subjective Progress Note for:: 05/10/20 Subjective:: No adverse events overnight. No new complaints. Vital signs been stable. Eating and drinking without difficulty. Creatinine is stable from yesterday. Reason For Visit: CHF EXACERBATION, CHEST PAIN Physical Exam Vital Signs: Temp Pulse Resp BP Pulse Ox 97.6 F 73 19 129/61 H 99 05/10/20 15:50 05/10/20 15:50 05/10/20 15:50 05/10/20 15:50 05/10/20 15:50 Intake & Output 05/09/20 05/10/20 05/11/20 06:59 06:59 06:59 Intake Total 260 900 Output Total 600 Balance -340 900 Weight 134.9 kg 139.4 kg General appearance: PRESENT: no acute distress, cooperative, disheveled, morbidly obese Respiratory exam: PRESENT: Clear to auscultation bilaterally, symmetrical, unlabored. ABSENT: accessory muscle use, chest wall tenderness, prolonged expiratory phas, rhonchi, tachypnea, wheezes Cardiovascular exam: PRESENT: irregular rhythm, +S1, +S2 Pulses: PRESENT: normal carotid pulses Vascular exam: PRESENT: normal capillary refill GI/Abdominal exam: PRESENT: normal bowel sounds, soft. ABSENT: distended, guarding, rebound, tenderness Extremities exam: ABSENT: clubbing, pedal edema Musculoskeletal exam: PRESENT: normal inspection. ABSENT: deformity Neurological exam: PRESENT: awake, oriented to person, oriented to place, oriented to situation Psychiatric exam: PRESENT: flat affect Skin exam: PRESENT: dry, warm Results Laboratory Results: 05/07/20 17:37 05/10/20 06:29 05/10/20 06:29 Sodium 136.4 L Potassium 4.4 Chloride 100 Carbon Dioxide 25 Anion Gap 11 BUN 28 H Creatinine 1.41 H Est GFR ( Amer) 59 L Glucose 167 H Calcium 9.3 Phosphorus 4.7 H Magnesium 1.7 05/07/20 05/07/20 05/07/20 17:37 17:37 17:37 Creatine Kinase 57 CK-MB (CK-2) 0.99 Troponin I 0.019 NT-Pro-B Natriuret Pep 2410 H 05/07/20 05/08/20 20:30 00:07 Creatine Kinase CK-MB (CK-2) Troponin I 0.026 0.028 NT-Pro-B Natriuret Pep Impressions: Chest X-Ray 05/07/20 17:33 IMPRESSION: Low lung volumes. Cardiomegaly. No acute findings. Head CT 05/07/20 19:58 IMPRESSION: 1. Hydrocephalus. Shunt present. Suggest clinical correlation if functioning. 2. No acute findings. Assessment and Plan - Diagnosis (1) Acute on chronic diastolic heart failure Is this a current diagnosis for this admission?: Yes (2) Atrial fibrillation Qualifiers: Atrial fibrillation type: unspecified chronic Qualified Code(s): I48.20 - Chronic atrial fibrillation, unspecified; I48.2 - Chronic atrial fibrillation Is this a current diagnosis for this admission?: Yes (3) Chest pain Qualifiers: Chest pain type: unspecified Qualified Code(s): R07.9 - Chest pain, unspecified Is this a current diagnosis for this admission?: Yes (4) Diabetes mellitus type 2 in obese Is this a current diagnosis for this admission?: Yes (5) Elevated troponin Is this a current diagnosis for this admission?: Yes (6) Morbid obesity with BMI of 40.0-44.9, adult Is this a current diagnosis for this admission?: Yes - Plan Summary Summary: He is chest pain-free. Diuretics on hold for right now as previously noted due to slight elevation in creatinine. Creatinine is flat today, will likely discharge home tomorrow as long as his creatinine is not continuing to elevate. Continue rate control and anticoagulation. Troponins have been flat. Request was sent today for records from [facility] as previously noted. If these come in after he leaves, we will forward them to Dr. Geller. - Time Time Spent with patient: 15-24 minutes Anticipated Discharge Disposition: Home, Self Care Anticipated Discharge Timeframe: within 24 hours
[2020-05-10] MEDS: PREGABALIN 100 MG CAPSULE PO SCH (22:16)
[2020-05-10] MEDS: ATORVASTATIN CALCIUM 80 MG TABLET PO SCH (22:16)
[2020-05-11] MEDS: LEVOTHYROXINE SODIUM 0.05 MG TABLET PO SCH (05:23)
[2020-05-11 06:31] LABS: ANION GAP 11 (5-19); BLOOD UREA NITROGEN 32 mg/dL (7-20); CALCIUM 9.1 mg/dL (8.4-10.2); CARBON DIOXIDE 26 mmol/L (22-30); CHLORIDE 99 mmol/L (98-107); GLUCOSE 152 mg/dL (75-110); POTASSIUM 4.4 mmol/L (3.6-5.0)
[2020-05-11] MEDS: INSULIN LISPRO 100 UNIT/ML 3 ML VIAL SUBCUT SCH ×4 (08:24→12:12)
[2020-05-11] MEDS: METOPROLOL SUCCINATE 50 MG TAB.SR.24H PO SCH (09:31)
[2020-05-11] MEDS: POTASSIUM CHLORIDE 10 MEQ TABLET.ER PO SCH (09:31)
[2020-05-11] MEDS: LISINOPRIL 10 MG TABLET PO SCH (09:31)
[2020-05-11] MEDS: APIXABAN 5 MG TABLET PO SCH (09:32)
[2020-05-11] MEDS: ASPIRIN 81 MG TABLET, ENT COATED PO SCH (09:32)
[2020-05-11] MEDS: ALLOPURINOL 100 MG TABLET PO SCH (09:32)
[2020-05-11] MEDS: MAGNESIUM OXIDE 400 MG TABLET PO SCH (09:32)
[2020-05-11] MEDS: FOLIC ACID 1 MG TABLET PO SCH (09:32)
[2020-05-11] MEDS: DOCUSATE SODIUM 100 MG CAPSULE PO SCH (09:32)
[2020-05-11] MEDS: INSULIN GLARGINE,HUM.REC.ANLOG 1,000 UNIT/10 ML VIAL SUBCUT SCH (09:33)
--- NOTE | 2020-05-11 13:07 | PDOC PROGRESS REPORT ---
Subjective Progress Note for:: 05/11/20 Subjective:: Patient was seen and examined. He is resting comfortably in chair. No distress noted. He does not admit to any complaints Reason For Visit: CHF EXACERBATION, CHEST PAIN Physical Exam Vital Signs: Temp Pulse Resp BP Pulse Ox 97.4 F 67 20 118/57 L 100 05/11/20 11:23 05/11/20 11:23 05/11/20 11:23 05/11/20 11:23 05/11/20 11:23 Intake & Output 05/10/20 05/11/20 05/12/20 06:59 06:59 06:59 Intake Total 900 500 702 Balance 900 500 702 Weight 139.4 kg 139.2 kg General appearance: PRESENT: no acute distress, morbidly obese, well-developed, well-nourished Head exam: PRESENT: atraumatic, normocephalic Eye exam: PRESENT: EOMI Respiratory exam: PRESENT: symmetrical, unlabored Cardiovascular exam: PRESENT: irregular rhythm, +S1, +S2 Rectal exam: PRESENT: deferred Skin exam: PRESENT: dry, intact Results Laboratory Results: 05/07/20 17:37 05/11/20 05:47 05/11/20 05:47 Sodium 135.5 L Potassium 4.4 Chloride 99 Carbon Dioxide 26 Anion Gap 11 BUN 32 H Creatinine 1.45 H Est GFR ( Amer) 58 L Glucose 152 H Calcium 9.1 05/07/20 05/07/20 05/07/20 17:37 17:37 17:37 Creatine Kinase 57 CK-MB (CK-2) 0.99 Troponin I 0.019 NT-Pro-B Natriuret Pep 2410 H 05/07/20 05/08/20 20:30 00:07 Creatine Kinase CK-MB (CK-2) Troponin I 0.026 0.028 NT-Pro-B Natriuret Pep Impressions: Chest X-Ray 05/07/20 17:33 IMPRESSION: Low lung volumes. Cardiomegaly. No acute findings. Head CT 05/07/20 19:58 IMPRESSION: 1. Hydrocephalus. Shunt present. Suggest clinical correlation if functioning. 2. No acute findings. Assessment & Plan - Diagnosis (1) Chest pain Qualifiers: Chest pain type: unspecified Qualified Code(s): R07.9 - Chest pain, unspecified Is this a current diagnosis for this admission?: Yes Plan: Chest pain is completely resolved Troponin profile is flat EKG without ischemic changes We finally have access to the cath report as well as imaging studies that have been done recently. These are as reported to be by Dr. Ruiz. It appears that patient had nonobstructive coronary artery disease in 2018. No percutaneous intervention was performed at that time. His ejection fraction was mildly reduced at about 40%. Subsequent stress test performed in September of this year did not reveal any ischemia and an echocardiogram in the same year showed persistent LV dysfunction at 40%. Given the above and given nondiagnostic cardiac markers and complete resolution of chest pain would not escalate work-up. If anything will prefer long-acting nitrates if patient continues to endorse chest pain. He will need medicines for dilated cardiomyopathy (2) Elevated troponin Is this a current diagnosis for this admission?: Yes Plan: Flat troponin profile. Unlikely to be myocardial ischemia especially with absent chest pain (3) Acute on chronic diastolic heart failure Is this a current diagnosis for this admission?: Yes Plan: Possible component of congestive heart failure Volume status is hard to assess (4) Atrial fibrillation Qualifiers: Atrial fibrillation type: unspecified chronic Qualified Code(s): I48.20 - Chronic atrial fibrillation, unspecified; I48.2 - Chronic atrial fibrillation Is this a current diagnosis for this admission?: Yes Plan: Rate controlled atrial fibrillation Continue systemic anticoagulation Asymptomatic Rate control strategy only - Notes Notes: No family was present in the room today It appears that the patient has diagnosed nonobstructive coronary artery disease in 2018. Prefer medical therapy especially given absence of ongoing chest pain and nondiagnostic cardiac biomarkers. Antianginal therapy can be escalated if necessary if patient continues to exhibit symptoms of angina Continue medicines for LV dysfunction
[2020-05-11 13:14] VITALS: BP 119/77
--- NOTE | 2020-05-11 16:37 | PDOC DISCHARGE SUMMARY ---
Impression - Admit/DC Date/PCP Admission Date/Primary Care Provider: 05/08/20 00:26 ABRAM CASTREJON PA-C Discharge Date: 05/11/20 - Discharge Diagnosis (1) Acute on chronic diastolic heart failure Is this a current diagnosis for this admission?: Yes (2) Atrial fibrillation Is this a current diagnosis for this admission?: Yes (3) Chest pain Is this a current diagnosis for this admission?: Yes (4) Diabetes mellitus type 2 in obese Is this a current diagnosis for this admission?: Yes (5) Elevated troponin Is this a current diagnosis for this admission?: Yes (6) Morbid obesity with BMI of 40.0-44.9, adult Is this a current diagnosis for this admission?: Yes - Assessment Summary: He is chest pain-free. Diuretics on hold for right now as previously noted due to slight elevation in creatinine. Creatinine is flat today, will likely discharge home tomorrow as long as his creatinine is not continuing to elevate. Continue rate control and anticoagulation. Troponins have been flat. Request was sent today for records from [facility] as previously noted. If these come in after he leaves, we will forward them to Dr. Geller. - Additional Information Resuscitation Status: Do Not Resuscitate - DNR/DNI Discharge Diet: Cardiac, Diabetic Discharge Activity: Activity As Tolerated, Balance Activity w/Rest Referrals: Deonte Escobar [Other] - 05/14/20 10:00 am ABRAM CASTREJON PA-C [Primary Care Provider] - Follow up as needed Home Medications: Apixaban [Eliquis 2.5 mg Tablet] 5 mg PO BIDBS 10/18/18 Atorvastatin Calcium [Lipitor 80 mg Tablet] 80 mg PO QHS 10/18/18 Furosemide [Lasix] 40 mg PO QAM 10/18/18 Insulin Glargine,Hum.rec.anlog [Lantus Insulin 100 Unit/1 ml 10 ml] 40 unit SUBCUT QPM 10/18/18 Levothyroxine Sodium 50 mcg PO Q6AM 10/18/18 Metoprolol Succinate [Toprol XL 100 mg Tablet] 100 mg PO QAM 10/18/18 Multivit-Min/FA/Lycopen/Lutein [Centrum Silver Men Tablet] 1 each PO QAM 10/18/18 Pantoprazole Sodium [Protonix [address] Tablet] 20 mg PO ACSUPPER 10/18/18 Potassium Chloride [Klor-Con 10 Meq Tablet ER] 10 meq PO WBRKFST 10/18/18 Allopurinol [Zyloprim 100 mg Tablet] 100 mg PO WBRKFST 05/08/20 Folic Acid [Folvite 1 mg Tablet] 1 mg PO WBRKFST 05/08/20 Insulin Lispro [Humalog Insulin (Lispro) 100 unit/mL] 16 units SQ WBRKFST 05/08/20 Insulin Lispro [Humalog Insulin (Lispro) 100 unit/mL] 48 units SQ WSUPPER 05/08/20 Lisinopril [Zestril] 20 mg PO ACBRKFST 05/08/20 Magnesium Oxide [Mag-Ox 400 mg Tablet] 400 mg PO BIDBS 05/08/20 Pregabalin [Lyrica] 200 mg PO WSUPPER 05/08/20 Psyllium Husk (with Sugar) [Metamucil Packet] 6.8 gm PO BIDBS 05/08/20 Insulin Glargine,Hum.rec.anlog [Lantus Insulin 100 Unit/1 ml 10 ml] 40 unit SUBCUT QAM #0 05/11/20 History of Present Illiness History of Present Illness: LOPEZ WALSH is a 74 year old male with history of diastolic heart failure, hypertension, atrial fibrillation on Eliquis, CVA with left-sided weakness, hydrocephalus with ventricular shunt who presents to the hospital for evaluation after fall. Today, patient was walking towards the bathroom with his walker when he suddenly felt quite weak in his legs and fell. He denies any loss of consciousness. In the ER head CT was done which was unremarkable for any traumatic events. Patient also complained of chest pain which is substernal and started earlier yesterday lasting about 4 minutes with radiation to both shoulders, but no particular alleviating or aggravating factors. He describes this as a 9/10 in severity and like somebody was punching his chest. Denies prior episodes. Had a recurrent episode of chest pain shortly before our encounter which also resolved after about 4 minutes with similar qualities. He had a stress test done earlier this year but his no him know the result. Had left heart cath in 2018. Follows with [facility]. Also complains of orthopnea which has been present for 2 years now but with recent worsening. Patient's also divulges that patient is weak in his legs especially his left leg with difficulty ambulating. Hospital Course Hospital Course: He has been diuresed and he seems to have returned to a euvolemic state. He has been medically optimized. He was seen in consultation as an inpatient by Dr. Geller. We obtained records from [facility]. He had a cardiac catheterization there in 2018. It showed that he had two-vessel disease: 2 lesions in the LAD, mid LAD 40% and distal LAD 45%; and mid RCA 35%. EF was 40 to 45%. He also had a stress test and echocardiogram in September of this year, ordered by a cardiac nurse practitioner that he sees in [place]. The echocardiogram showed an EF of 40% and severe pulmonary hypertension with RVSP of 70 mmHg. The stress test showed no acute ischemia. He will resume his usual medications for his cardiac conditions, including his rate control agent and his anticoagulation for atrial fibrillation. He has follow-up arranged in a few days with his cardiac nurse practitioner. His labs and examination were reassuring and he was discharged in stable condition. He also complained of some chest pain but his troponins here were flat and he was pain-free without evidence of ongoing ischemia. Physical Exam Vital Signs: Temp Pulse Resp BP Pulse Ox 97.4 F 67 20 119/77 100 05/11/20 13:12 05/11/20 13:12 05/11/20 13:12 05/11/20 13:12 05/11/20 13:12 Intake & Output 05/10/20 05/11/20 05/12/20 06:59 06:59 06:59 Intake Total 900 500 702 Balance 900 500 702 Weight 139.4 kg 139.2 kg General appearance: PRESENT: no acute distress, cooperative, disheveled, morbidly obese Respiratory exam: PRESENT: Clear to auscultation bilaterally, symmetrical, unlabored. ABSENT: accessory muscle use, chest wall tenderness, prolonged expiratory phas, rhonchi, tachypnea, wheezes Cardiovascular exam: PRESENT: irregular rhythm, +S1, +S2 Pulses: PRESENT: normal carotid pulses Vascular exam: PRESENT: normal capillary refill GI/Abdominal exam: PRESENT: normal bowel sounds, soft. ABSENT: distended, guarding, rebound, tenderness Extremities exam: ABSENT: clubbing, pedal edema Musculoskeletal exam: PRESENT: normal inspection. ABSENT: deformity Neurological exam: PRESENT: awake, oriented to person, oriented to place, oriented to situation Psychiatric exam: PRESENT: flat affect Skin exam: PRESENT: dry, warm Results Laboratory Results: WBC 10.8 10^3/uL (4.0-10.5) H 05/07/20 17:37 RBC 4.17 10^6/uL (4.35-5.55) L 05/07/20 17:37 Hgb 12.2 g/dL (13.5-17.0) L 05/07/20 17:37 Hct 36.7 % (37.9-51.0) L 05/07/20 17:37 MCV 88 fl (80-97) 05/07/20 17:37 MCH 29.2 pg (27.0-33.4) 05/07/20 17:37 MCHC 33.2 g/dL (32.0-36.0) 05/07/20 17:37 RDW 15.7 % (11.5-14.0) H 05/07/20 17:37 Plt Count 229 10^3/uL (150-450) 05/07/20 17:37 Lymph % (Auto) 13.4 % (13-45) 05/07/20 17:37 [place] % (Auto) 11.2 % (3-13) 05/07/20 17:37 Eos % (Auto) 1.4 % (0-6) 05/07/20 17:37 Baso % (Auto) 0.5 % (0-2) 05/07/20 17:37 Absolute Neuts (auto) 7.9 10^3/uL (1.7-8.2) 05/07/20 17:37 Absolute Lymphs (auto) 1.4 10^3/uL (0.5-4.7) 05/07/20 17:37 Absolute Monos (auto) 1.2 10^3/uL (0.1-1.4) 05/07/20 17:37 Absolute Eos (auto) 0.2 10^3/uL (0.0-0.6) 05/07/20 17:37 Absolute Basos (auto) 0.1 10^3/uL (0.0-0.2) 05/07/20 17:37 Seg Neutrophils % 73.5 % (42-78) 05/07/20 17:37 Sodium 135.5 mmol/L (137-145) L 05/11/20 05:47 Potassium 4.4 mmol/L (3.6-5.0) 05/11/20 05:47 Chloride 99 mmol/L (98-107) 05/11/20 05:47 Carbon Dioxide 26 mmol/L (22-30) 05/11/20 05:47 Anion Gap 11 (5-19) 05/11/20 05:47 BUN 32 mg/dL (7-20) H 05/11/20 05:47 Creatinine 1.45 mg/dL (0.52-1.25) H 05/11/20 05:47 Est GFR ( Amer) 58 (>60) L 05/11/20 05:47 Est GFR (MDRD) Non-Af 48 (>60) L 05/11/20 05:47 Glucose 152 mg/dL (75-110) H 05/11/20 05:47 POC Glucose 156 mg/dL (70-110) H 05/11/20 05:57 Calcium 9.1 mg/dL (8.4-10.2) 05/11/20 05:47 Phosphorus 4.7 mg/dL (2.5-4.5) H 05/10/20 06:29 Magnesium 1.7 mg/dL (1.6-2.3) 05/10/20 06:29 Total Bilirubin 0.6 mg/dL (0.2-1.3) 05/07/20 17:37 Direct Bilirubin 0.2 mg/dL (0.0-0.4) 05/07/20 17:37 Neonat Total Bilirubin Not Reportable 05/07/20 17:37 Neonat Direct Bilirubin Not Reportable 05/07/20 17:37 Neonat Indirect Bili Not Reportable 05/07/20 17:37 AST 21 U/L (17-59) 05/07/20 17:37 ALT 26 U/L (<50) 05/07/20 17:37 Alkaline Phosphatase 90 U/L (38-126) 05/07/20 17:37 Creatine Kinase 57 U/L (55-170) 05/07/20 17:37 CK-MB (CK-2) 0.99 ng/mL (<4.55) 05/07/20 17:37 Troponin I 0.028 ng/mL 05/08/20 00:07 NT-Pro-B Natriuret Pep 2410 pg/mL (<125) H 05/07/20 17:37 Total Protein 6.3 g/dL (6.3-8.2) 05/07/20 17:37 Albumin 3.6 g/dL (3.5-5.0) 05/07/20 17:37 Lipase 84.5 U/L (23-300) 05/09/20 05:20 05/07/20 05/07/20 05/07/20 17:37 17:37 20:30 CK-MB (CK-2) 0.99 Troponin I 0.019 0.026 NT-Pro-B Natriuret Pep 2410 H 05/08/20 00:07 CK-MB (CK-2) Troponin I 0.028 NT-Pro-B Natriuret Pep Impressions: Chest X-Ray 05/07/20 17:33 IMPRESSION: Low lung volumes. Cardiomegaly. No acute findings. Head CT 05/07/20 19:58 IMPRESSION: 1. Hydrocephalus. Shunt present. Suggest clinical correlation if functioning. 2. No acute findings. Plan Time Spent: Greater than 30 Minutes Stroke Is this a Stroke Patient?: No Acute Heart Failure Is this a Heart Failure Patient?: Yes Documentation of LVEF assessment?: Yes LVEF: LVEF Greater Than 40% Anticoagulant Therapy: Yes Discharged on Evidence-Based Beta Blockers: Yes Discharged on ARNI?: No-Document Contraindications Reason(s) not discharged on ARNI: Other ARNI Reason - Other: Not indicated Discharged on ARB?: No-document contraindications Reason(s) not Discharged on ARB: Other ARB Reason - Other: On PREM inhibitor Discharged on ACEI?: Yes For LVEF <35%, discharged on Aldosterone Antagonist?: N/A (LVEF > or = 35%) Follow-up Appointment scheduled within 7 days?: Yes
== END 2020-05-11 13:45 | disposition home or self-care (01) | DRG 292 ==
LOC: ER 17:21 → EH 05-08 00:26 → 4S 05-08 17:50
PROVIDERS: ADMIT Internal Medicine; ATTEND Family Medicine
DX: I11.0 Hypertensive heart disease with heart failure (principal); Z68.41 Body mass index [BMI] 40.0-44.9, adult; I69.354 Hemiplegia and hemiparesis following cerebral infarction affecting left non-dominant side; G91.9 Hydrocephalus, unspecified; I48.20 Chronic atrial fibrillation, unspecified; I50.33 Acute on chronic diastolic (congestive) heart failure; Z79.01 Long term (current) use of anticoagulants; I27.20 Pulmonary hypertension, unspecified; D64.9 Anemia, unspecified; E11.9 Type 2 diabetes mellitus without complications; R77.8 Other specified abnormalities of plasma proteins; E66.01 Morbid (severe) obesity due to excess calories; Z66 Do not resuscitate; W18.30XA Fall on same level, unspecified, initial encounter; R06.01 Orthopnea; E78.5 Hyperlipidemia, unspecified; Z96.651 Presence of right artificial knee joint; M19.90 Unspecified osteoarthritis, unspecified site; Z28.21 Immunization not carried out because of patient refusal; Z79.4 Long term (current) use of insulin; Z79.899 Other long term (current) drug therapy; Z98.2 Presence of cerebrospinal fluid drainage device; Z87.891 Personal history of nicotine dependence; Z82.49 Family history of ischemic heart disease and other diseases of the circulatory system
CPT/HCPCS: 36415; 70450; 71045; 80048; 80053; 82550; 82553; 82962; 83690; 83735; 83880; 84100; 84484; 85025; 90471; 90686; 93005; 93010; 96372; 99285; G0008; J1650; J1815; J1940; J3490